=== PATIENT | female | born 1965 | race American Indian/Alaskan Native ===

== ENCOUNTER 2017-06-11 09:50 | Emergency (ER) | payer SELFPAY ==
[2017-06-11 10:05] VITALS: BP 95/65
[2017-06-11] MEDS ORDERED: Ketorolac 30 MG/ML SDV ONE (10:47)
[2017-06-11] MEDS ORDERED: Ketorolac 30 MG/ML SDV IM ONE (10:48)
[2017-06-11] MEDS ORDERED: Methocarbamol 500 MG Tab PO ONE (11:04)
--- NOTE | 2017-06-11 11:06 | EDM.PDOC ---
ED HPI GENERAL MEDICAL PROBLEM - General Chief Complaint: Back Pain or Injury Stated Complaint: back pain Time Seen by Provider: 06/11/17 10:30 Source of Information: Reports: Patient History Limitations: Reports: No Limitations - History of Present Illness INITIAL COMMENTS - FREE TEXT/NARRATIVE: 52-year-old female presents emergency room with acute on chronic low back pain complaints. Patient has had a long history of difficulties relating to her low back. She states that she gets some pain radiating down into her left Leg with tingling. The durations of her symptoms have been at least 5 years. She states the pain is sharp and shooting. She denies any saddle paresthesias or bowel or bladder incontinence. Patient denies any significant change in her pain or symptoms including radicular complaints for her back pain. She's had a prior MRI in 2014 of her lumbar spine and report is reviewed today. Her impression showed a questionable tiny disc protrusion at L5-S1 in the right subarticular region. There is no associated spinal canal stenosis or nerve root impingement. There is also a T12 and L1 small central disc protrusion without spinal canal stenosis or nerve root impingement. MRI was otherwise unremarkable. She has a current smoker but has cut down to 5 cigarettes a day. She is prior pack and a half a day smoker. 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 She states that she does not have insurance and therefore she cannot afford surgery. She reports she does not have a primary care provider currently at this time and has relocated from the [facility] to [place]. She states that she is well defined and your primary care provider" for management of her pain. She's had at least 2 visits and the most recent past to the ER presenting with back pain. These were in [place] at [facility]. Her last visit was in May 25, 2017. She was given Decadron, Valium, Narco and portal in the ED department. She was discharged with Robaxin and was encouraged to follow-up with her primary care provider. She has tried physical therapy in the past but reports that this has not been helpful. She has not been through any recent therapy. 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 She's been treated with Soma and gabapentin for her fibromyalgia. She reports she no longer sees Dr. Anderson. 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) Lower Back Pain Score (Numeric/FACES): 9 - Related Data Allergies Allergy/AdvReac Type Severity Reaction Status Date / Time latex Allergy Unknown Anaphylactic Uncoded 06/11/17 10:05 Shock seafood Allergy Unknown Airway Uncoded 06/11/17 10:05 Tightness Home Meds: Home Meds Gabapentin [Neurontin] 300 mg PO TID 06/11/17 [History] Past Medical History - Past Health History Medical/Surgical History: Denies Medical/Surgical History Gastrointestinal History: Reports: Hemorrhoids Genitourinary History: Reports: None 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 Musculoskeletal History: Reports: Back Pain, Chronic, Fracture, Fibromyalgia, Neck Pain, Chronic Dermatologic History: Reports: Eczema - Infectious Disease History Infectious Disease History: Reports: Chicken Pox, Measles - Past Surgical History Head Surgeries/Procedures: Reports: None HEENT Surgical History: Reports: Adenoidectomy, Tonsillectomy GI Surgical History: Reports: Appendectomy Female Surgical History: Reports: Tubal Ligation Musculoskeletal Surgical History: Reports: None Dermatological Surgical History: Reports: None Social & Family History - Family History Family Medical History: Noncontributory - Tobacco Use Smoking Status *Q: Current Every Day Smoker Years of Tobacco use: 40 Packs/Tins Daily: 0.2 Used Tobacco, but Quit: No Month Tobacco Last Used: nov. Second Hand Smoke Exposure: No - Caffeine Use Caffeine Use: Reports: Coffee, Soda, Tea - Alcohol Use Days Per Week of Alcohol Use: 0 - Recreational Drug Use Recreational Drug Use: No - Living Situation & Occupation Living situation: Reports: with Family Occupation: Employed ED ROS GENERAL - Review of Systems Review Of Systems: See Below Constitutional: Denies: Fever, Chills HEENT: Denies: Vertigo Respiratory: Denies: Shortness of Breath Cardiovascular: Denies: Chest Pain, Blood Pressure Problem Endocrine: Denies: High Glucose GI/Abdominal: Denies: Abdominal Pain : Denies: Dysuria, Flank Pain Musculoskeletal: Reports: Back Pain (chronic) Skin: Denies: Diaphoresis Neurological: Reports: Numbness, Tingling. Denies: Change in Speech, Gait Disturbance Psychiatric: Reports: No Symptoms Hematologic/Lymphatic: Reports: No Symptoms Immunologic: Reports: Anaphylaxis ED EXAM,LOWER BACK PAIN/INJURY - Physical Exam Exam: See Below Exam Limited By: No Limitations General Appearance: Alert, Mild Distress Eye Exam: Bilateral Eye: EOMI, PERRL Head: Atraumatic, Normocephalic Neck: Normal Inspection, Supple Respiratory/Chest: No Respiratory Distress, Lungs Clear Cardiovascular: Regular Rate, Rhythm, No Murmur Back Exam: Normal Inspection, Muscle Spasm, Paraspinal Tenderness, Other (back exam reveals no prior history trauma or surgery. She has a paraspinal tenderness near the lumbosacral junction extending proximally up the lumbar spine. She has no specific midline bony tenderness. She does complain of increased pain discomfort with any gentle range of motion. Lower extremity exam shows motor strength are 5 out of 5 throughout with hip flexion extension ankle dorsal plantar flexion and great toe extension bilaterally she has supple unrestricted range of motion with passive range of motion of her hips knees and ankles. Straight leg raise is negative and patient is able to actively straight leg with minimal difficulty. She has no swelling or peripheral edema. Her pulses are 2+ her skin dry and intact. Deep tendon reflexes are 1+ at the knees and ankles and symmetric toes are downgoing with Babinski and clonus is absent bilaterally.). No: Vertebral Tenderness Extremities: Normal Inspection, Normal Range of Motion, No Pedal Edema, Normal Capillary Refill Neurological: Alert, Normal Mood/Affect, Normal Dorsiflexion, Normal Plantar Flexion, No Motor/Sensory Deficits, Oriented x 3, Other (clonus is absent). No : Babinski, Straight Leg Raise (L), Straight Leg Raise (R), Saddle Anesthesia DTR - Lower Extremities: 1+: Knee (R), Knee (L), Ankle (R), Ankle (L) Psychiatric: Normal Affect, Depressed Mood Skin Exam: Warm, Dry, Intact, Normal Color, No Rash Lymphatic: No Adenopathy Course - Vital Signs Last Recorded V/S: Last Vital Signs Temp 98.5 F 06/11/17 09:53 Pulse 82 06/11/17 09:53 Resp 16 06/11/17 09:53 BP 95/65 06/11/17 09:53 Pulse Ox 97 06/11/17 09:53 - Orders/Labs/Meds Orders: Active Orders 24 hr Category Date Time Status Lumbar Spine 2 or 3V [CR] Stat Exams 06/11/17 10:47 Ordered Meds: Medications Discontinued Medications Generic Name Dose Route Start Last Admin Trade Name Noy PRN Reason Stop Dose Admin Ketorolac Tromethamine 30 mg 06/11/17 10:48 Toradol IM 06/11/17 10:49 .STK-MED ONE Ketorolac Tromethamine Confirm 06/11/17 10:47 06/11/17 10:53 Toradol Administered 06/11/17 10:48 30 mg Dose Administration 30 mg .ROUTE .STK-MED ONE Meperidine HCl Confirm 06/11/17 11:45 06/11/17 11:51 Demerol Administered 06/11/17 11:46 Not Given Dose 50 mg .ROUTE .STK-MED ONE Meperidine HCl 50 mg 06/11/17 11:51 Demerol IM 06/11/17 11:52 ONETIME ONE Methocarbamol 1,000 mg 06/11/17 11:04 06/11/17 11:18 Robaxin PO 06/11/17 11:05 1,000 mg ONETIME ONE Administration - Radiology Interpretation Free Text/Narrative:: X-rays lumbar spine 3 views Findings: Normal alignment. No acute fracture, subluxation or spondylolysis. Stable mild degenerative disc disease at L1-2 and L3-4. Remaining lumbar disc are unremarkable. Mild degenerative changes of the sacroiliac joints. Impression No acute process - Re-Assessments/Exams Free Text/Narrative Re-Assessment/Exam: 06/11/17 11:46 Patient was given IM Toradol 30 mg and 1000 mg of Robaxin by mouth. Patient reports little to no significant change with regards to her pain currently. Patient was given 50 IM Demerol. We'll reassess her pain. Free Text/Narrative Re-Assessment/Exam: 06/11/17 12:06 Patient had some relief of her pain and discomfort with the IM Demerol. Departure - Departure Time of Disposition: 12:10 Disposition: Home, Self-Care 01 Condition: Good Clinical Impression: Chronic lower back pain - Discharge Information Instructions: Back Pain, Adult, [id number], Pain Medicine Instructions, Easy- to-Read, Chronic Back Pain Referrals: PCP,None [Primary Care Provider] - Forms: ED Department Discharge Care Plan Goals: 1. Toradol 10 mg 1 by mouth 3 times a day #15 dispensed for acute back pain. 2. Flexeril 10 mg 1 by mouth 3 times a day #30 dispensed for muscle spasms. 3. Rest over the weekend avoid vigorous activities or lifting. 4. Ice and heat packs for analgesic and comfort as needed. 5. Recommend the patient follow-up with her primary care provider. As she is new to this area I have recommended follow-up with Dr. Jackie Ribeiro for her primary care needs. 6. We will also have patient meet with HR resources for obtaining and providing information on healthcare insurance. - My Orders Last 24 Hours: My Active Orders 06/11/17 10:47 Lumbar Spine 2 or 3V [CR] Stat - Assessment/Plan Last 24 Hours: My Active Orders 06/11/17 10:47 Lumbar Spine 2 or 3V [CR] Stat Assessment:: 1. Chronic low back pain 2. Fibromyalgia Plan: 1. Toradol 10 mg 1 by mouth 3 times a day #15 dispensed for acute back pain. 2. Flexeril 10 mg 1 by mouth 3 times a day #30 dispensed for muscle spasms. 3. Rest over the weekend avoid vigorous activities or lifting. 4. Ice and heat packs for analgesic and comfort as needed. 5. Recommend the patient follow-up with her primary care provider. As she is new to this area I have recommended follow-up with Dr. Jackie Ribeiro for her primary care needs. 6. We will also have patient meet with HR resources for obtaining and providing information on healthcare insurance. 7. Long discussion with the patient regarding her MRI from 2014 upon its review. There does not appear to be anything surgically indicated from her MRI from 2015. Patient reports her symptoms really have not changed over the last couple years since her MRI. I have recommended that she try physical therapy again as well as the importance of having a primary care provider manage her symptoms and pain. She has had a prior pain contract with Dr. Anderson and this may be one of the routes that she would need to reinitiate. She understands this. She seems to be encouraged and relieved that there is nothing surgically reviewed from her MRI. If her symptoms should change or progressively worsen with a new onset of radicular or sciatic pain then a new MRI would be indicated. Patient was discharged to home with her spouse.
[2017-06-11] MEDS ORDERED: Meperidine PF 50 MG/ML Syringe ONE (11:45)
[2017-06-11] MEDS ORDERED: Meperidine PF 50 MG/ML Syringe IM ONE (11:51)
== END 2017-06-11 12:05 | disposition home or self-care (01) ==
LOC: KA.ED 09:50
DX: G89.29 Other chronic pain (principal); M54.5 Low back pain; F17.210 Nicotine dependence, cigarettes, uncomplicated; Z91.040 Latex allergy status; Z91.013 Allergy to seafood; Z90.49 Acquired absence of other specified parts of digestive tract; Z90.89 Acquired absence of other organs; Z98.51 Tubal ligation status
CPT/HCPCS: 72100; 96372; 99283; A9270; J1885; J2175

== ENCOUNTER 2019-03-06 15:58 | Emergency (ER) | payer SELFPAY ==
[2019-03-06 16:16] VITALS: BP 120/83
--- NOTE | 2019-03-06 17:01 | EDM.PDOC ---
ED HPI GENERAL MEDICAL PROBLEM - General Chief Complaint: Lower Extremity Injury/Pain Stated Complaint: right foot pain Time Seen by Provider: 03/06/19 16:55 Source of Information: Reports: Patient History Limitations: Reports: No Limitations - History of Present Illness INITIAL COMMENTS - FREE TEXT/NARRATIVE: She is a 53-year-old female who presents to the emergency department this afternoon with a complaint of right foot pain. Patient states that she was a local store and she accidentally twisted her right foot. Patient denies any other injury, chest pain, shortness of breath, syncope, or knee pain. Onset: Today, Sudden Duration: Minutes: Location: Reports: Lower Extremity, Right Quality: Reports: Ache Severity: Moderate Improves with: Reports: None Worsens with: Reports: Movement Context: Reports: Trauma Associated Symptoms: Reports: No Other Symptoms Right Foot Pain Score (Numeric/FACES): 10 - Related Data Allergies Allergy/AdvReac Type Severity Reaction Status Date / Time latex Allergy Unknown Anaphylactic Uncoded 03/06/19 16:15 Shock seafood Allergy Unknown Airway Uncoded 03/06/19 16:15 Tightness Home Meds: Home Meds Gabapentin [Neurontin] 300 mg PO TID 06/11/17 [History] Cyclobenzaprine HCl 10 mg PO TID PRN 03/06/19 [History] Past Medical History - Past Health History Medical/Surgical History: Denies Medical/Surgical History Gastrointestinal History: Reports: Hemorrhoids Genitourinary History: Reports: None 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 Musculoskeletal History: Reports: Back Pain, Chronic, Fracture, Fibromyalgia, Neck Pain, Chronic Dermatologic History: Reports: Eczema - Infectious Disease History Infectious Disease History: Reports: Chicken Pox, Measles - Past Surgical History Head Surgeries/Procedures: Reports: None HEENT Surgical History: Reports: Adenoidectomy, Tonsillectomy GI Surgical History: Reports: Appendectomy Female Surgical History: Reports: Tubal Ligation Musculoskeletal Surgical History: Reports: None Dermatological Surgical History: Reports: None Social & Family History - Family History Family Medical History: Noncontributory - Tobacco Use Smoking Status *Q: Former Smoker Used Tobacco, but Quit: Yes Month/Year Tobacco Last Used: quit 2 months ago Second Hand Smoke Exposure: No - Caffeine Use Caffeine Use: Reports: Coffee, Soda, Tea - Recreational Drug Use Recreational Drug Use: No - Living Situation & Occupation Living situation: Reports: with Family Occupation: Employed Review of Systems - Review of Systems Review Of Systems: ROS reveals no pertinent complaints other than HPI. Constitutional: Reports: No Symptoms Eyes: Reports: No Symptoms Ears: Reports: No Symptoms Nose: Reports: No Symptoms Mouth/Throat: Reports: No Symptoms Respiratory: Reports: No Symptoms Cardiovascular: Reports: No Symptoms GI/Abdominal: Reports: No Symptoms Genitourinary: Reports: No Symptoms Musculoskeletal: Reports: Foot Pain (Right) Skin: Reports: No Symptoms Neurological: Reports: No Symptoms Psychiatric: Reports: No Symptoms ED EXAM, GENERAL - Physical Exam Exam: See Below Exam Limited By: No Limitations General Appearance: Alert, WD/WN, No Apparent Distress Throat/Mouth: Normal Inspection, Normal Oropharynx, No Airway Compromise Head: Atraumatic, Normocephalic Neck: Normal Inspection, Supple, Non-Tender Respiratory/Chest: No Respiratory Distress Back Exam: Normal Inspection Extremities: Leg Pain (Right foot, lateral aspect. Tenderness to palpation. No erythema, no edema, no deformity, no ecchymosis, no ankle range of motion tenderness or ligamentous laxity, no proximal tib-fib tenderness to palpation.) Neurological: Alert, Oriented, Normal Cognition Psychiatric: Normal Affect, Normal Mood Skin Exam: Warm, Dry, Intact, Normal Color, No Rash Course - Vital Signs Last Recorded V/S: Last Vital Signs Temp 97.7 F 03/06/19 16:11 Pulse 98 03/06/19 16:11 Resp 20 03/06/19 16:11 BP 120/83 03/06/19 16:11 Pulse Ox 98 03/06/19 16:11 - Orders/Labs/Meds Orders: Active Orders 24 hr Category Date Time Status Ankle Min 3V Rt [CR] Stat Exams 03/06/19 16:21 Taken Foot Comp Min 3V Rt [CR] Stat Exams 03/06/19 16:21 Taken - Re-Assessments/Exams Free Text/Narrative Re-Assessment/Exam: 03/06/19 17:04 Patient afebrile, vital signs stable, ice applied. Patient will treat with rice and follow-up with PCP. Departure - Departure Time of Disposition: 17:05 Disposition: Home, Self-Care 01 Condition: Good Clinical Impression: Right foot sprain Qualifiers: Encounter type: initial encounter Qualified Code(s): S93.601A - Unspecified sprain of right foot, initial encounter - Discharge Information Instructions: Foot Sprain, RICE Therapy for Routine Care of Injuries, Easy-to- Read Referrals: Jackie Juárez MD [Primary Care Provider] - Additional Instructions: Follow-up with PCP in next 2-3 days. Limit ambulation for 2-3 days. - My Orders Last 24 Hours: My Active Orders 03/06/19 16:21 Ankle Min 3V Rt [CR] Stat Foot Comp Min 3V Rt [CR] Stat - Assessment/Plan Last 24 Hours: My Active Orders 03/06/19 16:21 Ankle Min 3V Rt [CR] Stat Foot Comp Min 3V Rt [CR] Stat Assessment:: Right foot sprain Plan: Follow-up with PCP
--- NOTE | 2019-03-06 17:04 | CR ---
[id number] RAD/RAD Foot Right 3V Min EXAM: 3 VIEWS RIGHT FOOT. INDICATION: PAIN. COMPARISON: None. DISCUSSION: No fracture, dislocation or other acute osseous abnormality. Mild degenerative changes seen throughout the right foot post pronounced within the midfoot and interphalangeal joints. IMPRESSION: 1. No acute osseous abnormalities. Lacho Umana DO 03/06/19 [id number] Thank you for allowing us to participate in the care of your patient.
--- NOTE | 2019-03-06 17:04 | CR ---
[id number] RAD/RAD Ankle Right 3V Min EXAM: 3 VIEWS RIGHT ANKLE. INDICATION: PAIN. COMPARISON: None. DISCUSSION: No fracture, dislocation or other acute osseous abnormality. IMPRESSION: 1. No acute osseous abnormalities. Lacho Umana DO 03/06/19 [id number] Thank you for allowing us to participate in the care of your patient.
== END 2019-03-06 17:15 | disposition home or self-care (01) ==
LOC: KA.ED 15:58
DX: S93.601A Unspecified sprain of right foot, initial encounter (principal); Z91.040 Latex allergy status; Z91.013 Allergy to seafood; Z79.899 Other long term (current) drug therapy; Z87.891 Personal history of nicotine dependence; X50.1XXA Overexertion from prolonged static or awkward postures, initial encounter
CPT/HCPCS: 73610-RT; 73630-RT; 99283-25

== ENCOUNTER 2021-08-12 09:49 | Emergency (ER) | payer SELFPAY ==
[2021-08-12 10:04] VITALS: BP 116/73; PULSE 114
--- NOTE | 2021-08-12 10:46 | EDM.PDOC ---
ED HPI GENERAL MEDICAL PROBLEM - General Chief Complaint: General Stated Complaint: COVID SYMPTOMS Time Seen by Provider: 08/12/21 10:33 Source of Information: Reports: Patient History Limitations: Reports: No Limitations - History of Present Illness INITIAL COMMENTS - FREE TEXT/NARRATIVE: Patient presents with dyspnea, cough, decreased appetite/taste, and body aches. She also had diarrhea for one day and has vomited a couple times. Had a fever up to 102 but gone now. Symptoms started 7 days ago. She was exposed to covid from coworker. She has one day left of a Z-pack from Dr. Mitchell; says it helped some. 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: Other Medication(s) - Related Data Allergies Allergy/AdvReac Type Severity Reaction Status Date / Time latex Allergy Unknown Anaphylactic Uncoded 08/12/21 10:04 Shock seafood Allergy Unknown Airway Uncoded 08/12/21 10:04 Tightness Home Meds: Home Meds Cyclobenzaprine HCl 10 mg PO TID PRN 03/06/19 [History] Azithromycin [Zithromax] 250 mg PO DAILY 08/12/21 [History] Codeine/guaiFENesin [guaiFENesin-Codeine Syrup] 5 ml PO Q6H 08/12/21 [History] carisoprodoL [Carisoprodol] 350 mg PO TID 08/12/21 [History] Past Medical History - Past Health History Medical/Surgical History: Denies Medical/Surgical History Gastrointestinal History: Reports: Hemorrhoids Genitourinary History: Reports: None 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 Musculoskeletal History: Reports: Back Pain, Chronic, Fracture, Fibromyalgia, Neck Pain, Chronic Dermatologic History: Reports: Eczema - Infectious Disease History Infectious Disease History: Reports: Chicken Pox, Measles - Past Surgical History Head Surgeries/Procedures: Reports: None HEENT Surgical History: Reports: Adenoidectomy, Tonsillectomy GI Surgical History: Reports: Appendectomy Female Surgical History: Reports: Tubal Ligation Musculoskeletal Surgical History: Reports: None Dermatological Surgical History: Reports: None Social & Family History - Family History Family Medical History: No Pertinent Family History - Tobacco Use Tobacco Use Status *Q: Current Every Day Tobacco User Years of Tobacco use: 36 Packs/Tins Daily: 0.5 - Caffeine Use Caffeine Use: Reports: Coffee, Soda, Tea - Recreational Drug Use Recreational Drug Use: No - Living Situation & Occupation Living situation: Reports: with Family Occupation: Employed ED ROS GENERAL - Review of Systems Review Of Systems: See Below Constitutional: Reports: Malaise, Weakness, Fatigue. Denies: Fever HEENT: Denies: Ear Pain, Throat Pain, Vision Change Respiratory: Reports: Shortness of Breath, Cough Cardiovascular: Denies: Chest Pain, Lightheadedness, Syncope GI/Abdominal: Denies: Abdominal Pain, Constipation, Diarrhea, Vomiting : Denies: Dysuria, Flank Pain Musculoskeletal: Reports: Other (general body aches) Skin: Denies: Cyanosis, Jaundice, Mottled, Pallor, Diaphoresis Neurological: Denies: Confusion, Dizziness, Headache, Seizure, Syncope, Trouble Speaking, Difficulty Walking Psychiatric: Denies: Agitation, Anxiety, Confusion ED EXAM, GENERAL - Physical Exam Exam: See Below Exam Limited By: No Limitations General Appearance: Alert, WD/WN, No Apparent Distress Eye Exam: Bilateral Eye: EOMI, Normal Inspection, PERRL Ears: Normal External Exam, Hearing Grossly Normal Nose: Normal Inspection, No Blood Throat/Mouth: Normal Inspection, Normal Lips, Normal Voice, No Airway Compromise Head: Atraumatic, Normocephalic Neck: Normal Inspection, Full Range of Motion Respiratory/Chest: Decreased Breath Sounds (slightly), Wheezing (faint in left lung), Prolonged Expiration (slightly), Other (denies any chronic lung disease but she does smoke 1/2 ppd). No: Crackles, Rales, Rhonchi, Stridor Cardiovascular: Normal Peripheral Pulses, No Murmur, Tachycardia Peripheral Pulses: 2+: Dorsalis Pedis (L), Dorsalis Pedis (R) GI/Abdominal: Normal Bowel Sounds, Soft, Non-Tender, No Organomegaly, No Distention Back Exam: Normal Inspection, Full Range of Motion, CVA Tenderness (L) (she says flanks have hurt since she got sick but no urine symptoms), CVA Tenderness (R) Extremities: Normal Inspection, Normal Range of Motion, No Pedal Edema, Normal Capillary Refill Neurological: Alert, Oriented, Normal Cognition, No Motor/Sensory Deficits Psychiatric: Normal Affect, Normal Mood Skin Exam: Warm, Dry, Intact, Normal Color, No Rash Course - Vital Signs Last Recorded V/S: Last Vital Signs Temp 97.6 F 08/12/21 09:56 Pulse 114 H 08/12/21 09:56 Resp 14 08/12/21 09:56 BP 116/73 08/12/21 09:56 Pulse Ox 95 08/12/21 09:56 - Orders/Labs/Meds Orders: Active Orders 24 hr Category Date Time Status Isolation [COMM] Routine Oth 08/12/21 11:38 Ordered Labs: Laboratory Tests 08/12/21 08/12/21 08/12/21 Range/Units 10:12 10:35 10:35 WBC 10.53 H (5.00-10.00) 10^3/uL RBC 4.26 (3.80-5.50) 10^6/uL Hgb 13.7 (12.0-16.0) g/dL Hct 40.2 (37.0-47.0) % MCV 94.4 H (82.0-92.0) fL MCH 32.2 H (27.0-31.0) pg MCHC 34.1 (32.0-36.0) g/dL RDW 12.7 (11.5-14.5) % Plt Count 206 (150-400) 10^3/uL MPV 9.2 (7.4-10.4) fL Immature Gran % (Auto) 0.1 (0.0-5.0) % Neut % (Auto) 78.5 H (50.0-70.0) % Lymph % (Auto) 13.2 L (20.0-40.0) % [place] % (Auto) 8.1 H (2.0-8.0) % Eos % (Auto) 0.0 L (1.0-3.0) % Baso % (Auto) 0.1 (0.0-1.0) % Neut # (Auto) 8.27 H (2.50-7.00) 10^3/uL Lymph # (Auto) 1.39 (1.00-4.00) 10^3/uL [place] # (Auto) 0.85 H (0.10-0.80) 10^3/uL Eos # (Auto) 0.00 L (0.10-0.30) 10^3/uL Baso # (Auto) 0.01 (0.00-0.10) 10^3/uL Immature Gran # (Auto) 0.01 (0.00-0.50) 10^3/uL Sodium 139 (136-145) mmol/L Potassium 4.3 (3.5-5.1) mmol/L Chloride 103 (98-107) mmol/L Carbon Dioxide 23.9 (21.0-32.0) mmol/L Anion Gap 16.4 H (5-15) mmol/L BUN 5 L (7-18) mg/dL Creatinine 0.44 L (0.51-1.17) mg/dL Est Cr Clr Drug Dosing 129.73 mL/min Estimated GFR (MDRD) > 60 mL/min Glucose 105 (70-140) mg/dL Lactic Acid (0.4-2.0) mmol/L Calcium 8.3 L (8.7-10.3) mg/dL Total Bilirubin 1.2 H (0.2-1.0) mg/dL AST 41 H (15-37) U/L ALT 26 (14-63) U/L Alkaline Phosphatase 112 (46-116) U/L Total Protein 6.7 (6.4-8.2) g/dL Albumin 2.88 L (3.40-5.00) g/dL Specimen Type Urine Color (YELLOW) Urine Appearance (CLEAR) Urine pH (5.0-9.0) Ur Specific [place] (1.005-1.030) Urine Protein (NEGATIVE) mg/dL Urine Glucose (UA) (NEGATIVE) mg/dL Urine Ketones (NEGATIVE) mg/dL Urine Occult Blood (NEGATIVE) Urine Nitrite (NEGATIVE) Urine Bilirubin (NEGATIVE) Urine Urobilinogen (0.2-1.0) E.U./dL Ur Leukocyte Esterase (NEGATIVE) Urine RBC (0-5) /HPF Urine WBC (0-5) /HPF Ur Epithelial Cells /LPF Urine Bacteria (NONE TO FEW) /HPF SARS CoV-2 RNA Rapid MARCK Negative (NEGATIVE) 08/12/21 08/12/21 Range/Units 10:35 12:03 WBC (5.00-10.00) 10^3/uL RBC (3.80-5.50) 10^6/uL Hgb (12.0-16.0) g/dL Hct (37.0-47.0) % MCV (82.0-92.0) fL MCH (27.0-31.0) pg MCHC (32.0-36.0) g/dL RDW (11.5-14.5) % Plt Count (150-400) 10^3/uL MPV (7.4-10.4) fL Immature Gran % (Auto) (0.0-5.0) % Neut % (Auto) (50.0-70.0) % Lymph % (Auto) (20.0-40.0) % [place] % (Auto) (2.0-8.0) % Eos % (Auto) (1.0-3.0) % Baso % (Auto) (0.0-1.0) % Neut # (Auto) (2.50-7.00) 10^3/uL Lymph # (Auto) (1.00-4.00) 10^3/uL [place] # (Auto) (0.10-0.80) 10^3/uL Eos # (Auto) (0.10-0.30) 10^3/uL Baso # (Auto) (0.00-0.10) 10^3/uL Immature Gran # (Auto) (0.00-0.50) 10^3/uL Sodium (136-145) mmol/L Potassium (3.5-5.1) mmol/L Chloride (98-107) mmol/L Carbon Dioxide (21.0-32.0) mmol/L Anion Gap (5-15) mmol/L BUN (7-18) mg/dL Creatinine (0.51-1.17) mg/dL Est Cr Clr Drug Dosing mL/min Estimated GFR (MDRD) mL/min Glucose (70-140) mg/dL Lactic Acid 1.6 (0.4-2.0) mmol/L Calcium (8.7-10.3) mg/dL Total Bilirubin (0.2-1.0) mg/dL AST (15-37) U/L ALT (14-63) U/L Alkaline Phosphatase (46-116) U/L Total Protein (6.4-8.2) g/dL Albumin (3.40-5.00) g/dL Specimen Type [place]rin[place]ad Urine Color Yellow (YELLOW) Urine Appearance Clear (CLEAR) Urine pH 7.0 (5.0-9.0) Ur Specific [place] 1.015 (1.005-1.030) Urine Protein Negative (NEGATIVE) mg/dL Urine Glucose (UA) 100 H (NEGATIVE) mg/dL Urine Ketones Trace H (NEGATIVE) mg/dL Urine Occult Blood Negative (NEGATIVE) Urine Nitrite Negative (NEGATIVE) Urine Bilirubin Negative (NEGATIVE) Urine Urobilinogen >=8.0 H (0.2-1.0) E.U./dL Ur Leukocyte Esterase Negative (NEGATIVE) Urine RBC Not seen (0-5) /HPF Urine WBC Not seen (0-5) /HPF Ur Epithelial Cells Moderate H /LPF Urine Bacteria Few (NONE TO FEW) /HPF SARS CoV-2 RNA Rapid MARCK (NEGATIVE) Meds: Medications Discontinued Medications Generic Name Dose Route Start Last Admin Trade Name Freq PRN Reason Stop Dose Admin Sodium Chloride 1,000 mls @ 999 mls/hr 08/12/21 10:51 Normal Saline IV 08/12/21 11:51 .BOLUS ONE Ketorolac Tromethamine 30 mg 08/12/21 11:37 08/12/21 12:05 Ketorolac 30 Mg/Ml Sdv IVPUSH 08/12/21 11:38 30 mg ONETIME ONE Administration - Re-Assessments/Exams Free Text/Narrative Re-Assessment/Exam: 08/12/21 10:56 CXR shows small left pleural effusion and atelectasis; right lung is clear. 08/12/21 11:38 Covid test is negative. Patient asks what this could be; will check for influenza. She is also having pain in muscles around left scapula, tender to palpation. Wants something for it. Will give Toradol. Departure - Departure Time of Disposition: 13:14 Disposition: Home, Self-Care 01 Condition: Good Clinical Impression: Acute bronchitis Qualifiers: Bronchitis organism: unspecified organism Qualified Code(s): J20.9 - Acute bronchitis, unspecified - Discharge Information Referrals: Jackie Juárez MD [Primary Care Provider] - Forms: ED Department Discharge Additional Instructions: Drink 8 cups of water daily. This will help your cough and other symptoms. Finish the course of Zithromax you have started. You can try Mucinex or Robitussin for the cough if you want. Follow up with your PCP if not improving in 2-3 days. If worsening, recheck in clinic or ER as needed. Sepsis Event Note (ED) - Evaluation Sepsis Screening Result: No Definite Risk - Focused Exam Vital Signs: Vital Signs Temp Pulse Resp BP Pulse Ox 08/12/21 09:56 97.6 F 114 H 14 116/73 95 - My Orders Last 24 Hours: My Active Orders 08/12/21 11:38 Isolation [COMM] Routine - Assessment/Plan Last 24 Hours: My Active Orders 08/12/21 11:38 Isolation [COMM] Routine
--- NOTE | 2021-08-12 10:47 | CR ---
[id number] RAD/RAD Chest PA or AP 1V EXAM: RAD Chest PA or AP 1V INDICATION: COUGH, SOB COMPARISON: None. DISCUSSION/IMPRESSION: Cardiomediastinal silhouette is normal in size and contour. Small left pleural effusion and atelectasis. Right lung is clear. No pleural effusion or pneumothorax. Jostin Trujillo MD 08/12/21 1046 Thank you for allowing us to participate in the care of your patient.
[2021-08-12] MEDS ORDERED: Sodium Chloride 0.9% 1,000 ML IV ONE (10:51)
[2021-08-12 11:01] LABS: ANION GAP 16.4 mmol/L (5-15); CHLORIDE,CL 103 mmol/L (98-107); SODIUM,NA 139 mmol/L (136-145)
[2021-08-12] MEDS ORDERED: Ketorolac 30 MG/ML SDV IVPUSH ONE (11:37)
== END 2021-08-12 13:50 | disposition home or self-care (01) ==
LOC: KA.ED 09:49
DX: J20.9 Acute bronchitis, unspecified (principal); Z91.040 Latex allergy status; Z91.013 Allergy to seafood; Z72.0 Tobacco use; Z20.822 Contact with and (suspected) exposure to COVID-19
CPT/HCPCS: 36415; 71045; 80053; 81001; 83605; 85025; 87635; 87804; 96374; 99285; J1885; 99284; U0002

== ENCOUNTER 2021-09-08 14:20 | Inpatient (IN) | payer SELFPAY ==
[2021-09-08] MEDS ORDERED: Ondansetron 4 MG Tab.DIS PO PRN (16:07)
[2021-09-08] MEDS ORDERED: Sodium Chloride 0.9% 10 ML Syringe FLUSH PRN (16:07)
--- NOTE | 2021-09-08 16:16 | PCM.HP.2 ---
H&P History of Present Illness - General Date of Service: 09/08/21 Admit Problem/Dx: Admission Diagnosis/Problem Admission Diagnosis/Problem Dehydration Source of Information: Patient, Old Records, Significant Other History Limitations: Reports: No Limitations Back Pain Score (Numeric/FACES): 5 - Related Data Allergies/Adverse Reactions: Allergies Allergy/AdvReac Type Severity Reaction Status Date / Time latex Allergy Unknown Anaphylactic Uncoded 09/08/21 14:40 Shock seafood Allergy Unknown Airway Uncoded 09/08/21 14:40 Tightness Home Medications: Home Meds Cyclobenzaprine HCl 10 mg PO TID PRN 03/06/19 [History] carisoprodoL [Carisoprodol] 350 mg PO TID 08/12/21 [History] Past Medical History - Past Health History Medical/Surgical History: Denies Medical/Surgical History Gastrointestinal History: Reports: Hemorrhoids Genitourinary History: Reports: None 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 Musculoskeletal History: Reports: Back Pain, Chronic, Fracture, Fibromyalgia, Neck Pain, Chronic Dermatologic History: Reports: Eczema - Infectious Disease History Infectious Disease History: Reports: Chicken Pox, Measles - Past Surgical History Head Surgeries/Procedures: Reports: None HEENT Surgical History: Reports: Adenoidectomy, Tonsillectomy GI Surgical History: Reports: Appendectomy Female Surgical History: Reports: Tubal Ligation Musculoskeletal Surgical History: Reports: None, Other (See Below) Other Musculoskeletal Surgeries/Procedures:: Left hand, elbow and wrist, Dermatological Surgical History: Reports: None Social & Family History - Family History Family Medical History: No Pertinent Family History - Tobacco Use Tobacco Use Status *Q: Former Tobacco User Years of Tobacco use: 17 Packs/Tins Daily: 0.5 Used Tobacco, but Quit: Yes Month/Year Tobacco Last Used: 08/2021 - Caffeine Use Caffeine Use: Reports: None - Recreational Drug Use Recreational Drug Use: No - Living Situation & Occupation Living situation: Reports: with Family Occupation: Employed H&P Review of Systems - Review of Systems: Review Of Systems: See Below General: Reports: Malaise, Weakness, Fatigue, Decreased Appetite, Weight Loss. Denies: Night Sweats, Diaphoresis, Weight Gain HEENT: Reports: No Symptoms Pulmonary: Reports: Shortness of Breath. Denies: Cough, Sputum Cardiovascular: Reports: Lightheadedness Gastrointestinal: Reports: Abdominal Pain, Constipation (NO BM 7days ) Genitourinary: Reports: No Symptoms Musculoskeletal: Reports: Muscle Stiffness Psychiatric: Reports: Mood Lability. Denies: Confusion Neurological: Reports: Pre-Existing Deficit, Difficulty Walking, Weakness, Gait Disturbance. Denies: Paresthesia, Tremors, Change in Speech Hematologic/Lymphatic: Reports: Swollen Glands (cervical lymph nodes bilatera. ) Exam - Exam Exam: See Below - Vital Signs Vital Signs: Last Vital Signs Temp 97.3 F 09/08/21 14:37 Pulse 118 H 09/08/21 14:37 Resp 20 09/08/21 14:37 BP 116/72 09/08/21 14:37 Pulse Ox 96 09/08/21 14:37 Weight: 120 lb 12.8 oz - Exam Quality Assessment: No: Supplemental Oxygen General: Alert, Oriented. No: Mild Distress HEENT: Hearing Intact, Pupils Equal, Pupils Reactive, TMs Clear. No: Mucosa Moist & [place] Lungs: Clear to Auscultation, Normal Respiratory Effort. No: Crackles, Rales Cardiovascular: Regular Rate, Regular Rhythm, Tachycardia GI/Abdominal Exam: Tender (generalized tenderness. ). No: Normal Bowel Sounds, Distended (Female) Exam: Deferred Back Exam: No: CVA Tenderness (L), CVA Tenderness (R) Extremities: No Pedal Edema. No: Pedal Edema Peripheral Pulses: 2+: Radial (L), Radial (R) Skin: Dry Neurological: Normal Speech, Normal Tone, Sensation Intact Neuro Extensive - Mental Status: Alert, Oriented x3, Normal Mood/Affect, Memory Intact Neuro Extensive - Motor, Sensory, Reflexes: CN II-XII Intact Psychiatric: Alert, Labile Mood - Patient Data Result Diagrams: 09/10/21 08:40 09/10/21 08:40 Sepsis Event Note - Focused Exam Vital Signs: Vital Signs Temp Pulse Resp BP Pulse Ox 09/08/21 14:37 97.3 F 118 H 20 116/72 96 Problem List Initiated/Reviewed/Updated: Yes Orders Last 24hrs: Active Orders 24 hr Category Date Time Status Patient Status [ADT] Urgent ADT 09/08/21 16:07 Ordered Height and Weight [RC] UPON Care 09/08/21 16:07 Ordered Intake and Output [RC] QSHIFT Care 09/08/21 16:08 Ordered May Shower [RC] ASDIRECTED Care 09/08/21 16:07 Ordered Oxygen Therapy [RC] PRN Care 09/08/21 16:07 Ordered Peripheral IV Care [RC] . DIRECTED Care 09/08/21 16:10 Ordered Up With Assistance [RC] ASDIRECTED Care 09/08/21 16:07 Ordered Up to Chair [RC] ASDIRECTED Care 09/08/21 16:07 Ordered VTE/DVT Education [RC] PER UNIT ROUTINE Care 09/08/21 16:07 Ordered Vital Signs [RC] Q8H Care 09/08/21 16:07 Ordered Mechanical Soft Diet [DIET] Diet 09/08/21 Dinner Active NPO After Midnight [Nothing per Oral After Midnight Diet 09/08/21 Dinner Ordered Diet] [DIET] Chest 2V [CR] Routine Exams 09/08/21 16:07 Ordered C-REACTIVE PROTEIN [CHEM] AM Lab 09/09/21 05:11 Ordered CBC W/O DIFF,HEMOGRAM [HEME] Stat Lab 09/08/21 15:43 Ordered COMPREHENSIVE METABOLIC PN,CMP [CHEM] Routine Lab 09/08/21 15:43 Ordered TSH ULTRASENSITIVE [CHEM] Routine Lab 09/08/21 15:43 Ordered Ondansetron [Zofran ODT] Med 09/08/21 16:07 Ordered 4 mg PO Q4H PRN Pantoprazole [ProTONIX IV] Med 09/08/21 16:15 Ordered 40 mg IVPUSH Q12H Sodium Chloride 0.9% [Normal Saline] 1,000 ml Med 09/08/21 16:00 Active IV ASDIRECTED Sodium Chloride 0.9% [Saline Flush] Med 09/08/21 16:07 Ordered 10 ml FLUSH Q8HR PRN Peripheral IV Insertion Adult [OM.PC] Routine Oth 09/08/21 16:07 Ordered Resuscitation Status Routine Resus Stat 09/08/21 16:07 Ordered Medication Orders Sodium Chloride (Normal Saline) 1,000 mls @ 100 mls/hr IV ASDIRECTED JIM Ondansetron HCl (Ondansetron 4 Mg Tab.Dis) 4 mg PO Q4H PRN PRN Reason: nausea, able to take PO Pantoprazole Sodium (Pantoprazole 40 Mg Vial) 40 mg IVPUSH Q12H JIM Sodium Chloride (Sodium Chloride 0.9% 10 Ml Syringe) 10 ml FLUSH Q8HR PRN PRN Reason: keep vein open Assessment/Plan Comment:: History of Present Illness Vicki is a 56-year-old (appears older than stated age) here today due to extremely weakness, lightheadedness, decrease in appetite as she states she has not eaten much in 7 days along with abdominal fullness. Denies any fevers ho wever she does complain of lumps bilateral base of neck. She states she has not been able to eat very much as she feels she gets full rather quickly. Last BM ~ 1week ago. She has had a weight loss of approximately 5 pounds over the past month or two according to records. Patient will be admitted into observation status for further work-up/diagnostics as she does have a heart rate of 120, weakness, lightheadedness, and appears quite dehydrated. Likely will need abdominal/pelvis CT. ____ Primary Hospital Problems --Anemia, 3 g loss past month, concerning for malignancy --Elevated white count, likely leukocytosis, doubtful occult infection --Pleural effusion, Left, moderate, CT in am, suspect exudative given CxR results, likely will need diagnostic thoracentesis --Decrease appetite with 5 Lbs Wt Loss --Esophageal dysphagia, lower --Constipation, profound, holding all treatment modalities until after CT --Dehydration, ivf --Dizziness, Disposition/Overall Plan --Admit to [facility] OBS status for further testing, worrisome sx suggesti ve of Cancer. --CMP, CBC, ESR, CxR --IV Fluids --NPO afternight for scheduled CT - Mortality Measure Prognosis:: Poor
[2021-09-08] MEDS: Sodium Chloride 0.9% 1,000 ML IV SCH (16:52)
[2021-09-08] MEDS: Pantoprazole 40 MG Vial IVPUSH SCH (16:52)
--- NOTE | 2021-09-08 16:54 | CR ---
[id number] RAD/RAD Chest PA And Lateral EXAM: RAD Chest PA And Lateral INDICATION: SHORTNESS OF BREATH. COMPARISON: August 12, 2021. DISCUSSION: Moderate left effusion, increased. Concern for left hilar and possible right paratracheal masses. Consider chest CT with contrast. IMPRESSION: 1. Moderate left effusion, increased. 2. Left hilar fullness and mild prominence of the right paratracheal stripe. Chest CT with contrast is suggested to further evaluate for an underlying mass. Harshil Ríos MD 09/08/21 7230 Thank you for allowing us to participate in the care of your patient.
[2021-09-08] MEDS ORDERED: Cyclobenzaprine 5 MG Tab PO PRN (17:18)
[2021-09-08 17:20] LABS: ANION GAP 14.6 mmol/L (5-15); CHLORIDE,CL 98 mmol/L (98-107); SODIUM,NA 135 mmol/L (136-145)
[2021-09-09] MEDS ORDERED: Acetaminophen 325 MG Tab ONE (00:16)
[2021-09-09] MEDS: Sodium Chloride 0.9% 1,000 ML IV SCH ×2 (01:46→22:26)
[2021-09-09] MEDS: Pantoprazole 40 MG Vial IVPUSH SCH ×2 (05:37→16:18)
[2021-09-09] MEDS ORDERED: Diatrizoate Meglumine/Diatrizoate Sodium 37% 30 ML Bottle PO ONE (09:24)
[2021-09-09] MEDS ORDERED: Iopamidol 755 Mg/ML 75 ML Bottle IVPUSH ONE (09:24)
[2021-09-09] MEDS ORDERED: Sodium Chloride 0.9% 50 ML IV SCH (09:30)
--- NOTE | 2021-09-09 09:31 | PCM.PN ---
- General Info Date of Service: 09/09/21 - Review of Systems General: Reports: Weakness, Fatigue, Malaise HEENT: Denies: Sore Throat Pulmonary: Denies: Cough, Sputum, Hemoptysis, Wheezing Cardiovascular: Denies: Palpitations, Dyspnea on Exertion, PND, Edema, Lightheadedness Gastrointestinal: Reports: Abdominal Pain (upper epigastric), Difficulty Swallowing. Denies: Decreased Appetite, Diarrhea, Nausea, Vomiting Genitourinary: Reports: No Symptoms Skin: Reports: Dryness Neurological: Reports: Difficulty Walking, Weakness. Denies: Confusion Psychiatric: Reports: Depression - Patient Data Vitals - Most Recent: Last Vital Signs Temp 97.2 F 09/09/21 06:21 Pulse 110 H 09/09/21 06:21 Resp 20 09/09/21 06:21 BP 127/76 09/09/21 06:21 Pulse Ox 95 09/09/21 06:21 Weight - Most Recent: 120 lb 12.801 oz I&O - Last 24 Hours: Intake & Output 09/08/21 09/09/21 09/09/21 22:59 06:59 14:59 Intake Total 30 1284 Balance 30 1284 Lab Results Last 24 Hours: Laboratory Results - last 24 hr 09/08/21 09/08/21 09/09/21 Range/Units 16:56 16:56 08:00 WBC 15.40 H (5.00-10.00) 10^3/uL RBC 3.33 L (3.80-5.50) 10^6/uL Hgb 10.5 L D (12.0-16.0) g/dL Hct 32.2 L (37.0-47.0) % MCV 96.7 H (82.0-92.0) fL MCH 31.5 H (27.0-31.0) pg MCHC 32.6 (32.0-36.0) g/dL RDW 15.7 H (11.5-14.5) % Plt Count 387 D (150-400) 10^3/uL MPV 8.2 (7.4-10.4) fL Sodium 135 L (136-145) mmol/L Potassium 3.7 (3.5-5.1) mmol/L Chloride 98 (98-107) mmol/L Carbon Dioxide 26.1 (21.0-32.0) mmol/L Anion Gap 14.6 (5-15) mmol/L BUN 5 L (7-18) mg/dL Creatinine 0.47 L (0.51-1.17) mg/dL Est Cr Clr Drug Dosing 112.86 mL/min Estimated GFR (MDRD) > 60 mL/min Glucose 89 (70-140) mg/dL Calcium 7.6 L (8.7-10.3) mg/dL Total Bilirubin 0.5 (0.2-1.0) mg/dL AST 43 H (15-37) U/L ALT 14 (14-63) U/L Alkaline Phosphatase 130 H (46-116) U/L C-Reactive Protein > 11.0 H (0.0-0.9) mg/dL Total Protein 5.9 L (6.4-8.2) g/dL Albumin 1.78 L (3.40-5.00) g/dL TSH, Ultra Sensitive 0.962 (0.340-4.820) uIU/mL Med Orders - Current: Current Medications Acetaminophen (Acetaminophen 325 Mg Tab) 650 mg PO Q4H PRN PRN Reason: Pain Cyclobenzaprine HCl (Cyclobenzaprine 5 Mg Tab) 5 mg PO Q8H PRN PRN Reason: Pain Last Admin: 09/08/21 18:18 Dose: 5 mg Documented by: Sodium Chloride (Normal Saline) 1,000 mls @ 100 mls/hr IV ASDIRECTED [facility] Last Admin: 09/09/21 01:46 Dose: 100 mls/hr Documented by: Ondansetron HCl (Ondansetron 4 Mg Tab.Dis) 4 mg PO Q4H PRN PRN Reason: nausea, able to take PO Pantoprazole Sodium (Pantoprazole 40 Mg Vial) 40 mg IVPUSH Q12H [facility] Last Admin: 09/09/21 05:37 Dose: 40 mg Documented by: Sodium Chloride (Sodium Chloride 0.9% 10 Ml Syringe) 10 ml FLUSH Q8HR PRN PRN Reason: keep vein open Discontinued Medications Acetaminophen (Acetaminophen 325 Mg Tab) Confirm Administered Dose 650 mg .ROUTE .STK-MED ONE Stop: 09/09/21 00:17 Last Admin: 09/09/21 00:18 Dose: 650 mg Documented by: - Exam Quality Assessment: No: Supplemental Oxygen General: Alert, Oriented Neck: Supple Lungs: Decreased Breath Sounds (left side) Peripheral Pulses: 2+: Radial (R), Femoral (L) Skin: Other (pallor) Neurological: Normal Speech, Normal Tone, Sensation Intact, Cranial Nerves Intact Psy/Mental Status: Alert, Other (flat affect. ) - Patient Data Lab Results Last 24 hrs: Laboratory Results - last 24 hr 09/08/21 09/08/21 09/09/21 Range/Units 16:56 16:56 08:00 WBC 15.40 H (5.00-10.00) 10^3/uL RBC 3.33 L (3.80-5.50) 10^6/uL Hgb 10.5 L D (12.0-16.0) g/dL Hct 32.2 L (37.0-47.0) % MCV 96.7 H (82.0-92.0) fL MCH 31.5 H (27.0-31.0) pg MCHC 32.6 (32.0-36.0) g/dL RDW 15.7 H (11.5-14.5) % Plt Count 387 D (150-400) 10^3/uL MPV 8.2 (7.4-10.4) fL Sodium 135 L (136-145) mmol/L Potassium 3.7 (3.5-5.1) mmol/L Chloride 98 (98-107) mmol/L Carbon Dioxide 26.1 (21.0-32.0) mmol/L Anion Gap 14.6 (5-15) mmol/L BUN 5 L (7-18) mg/dL Creatinine 0.47 L (0.51-1.17) mg/dL Est Cr Clr Drug Dosing 112.86 mL/min Estimated GFR (MDRD) > 60 mL/min Glucose 89 (70-140) mg/dL Calcium 7.6 L (8.7-10.3) mg/dL Total Bilirubin 0.5 (0.2-1.0) mg/dL AST 43 H (15-37) U/L ALT 14 (14-63) U/L Alkaline Phosphatase 130 H (46-116) U/L C-Reactive Protein > 11.0 H (0.0-0.9) mg/dL Total Protein 5.9 L (6.4-8.2) g/dL Albumin 1.78 L (3.40-5.00) g/dL TSH, Ultra Sensitive 0.962 (0.340-4.820) uIU/mL Result Diagrams: 09/08/21 16:56 09/08/21 16:56 Sepsis Event Note - Evaluation Sepsis Screening Result: No Definite Risk - Focused Exam Vital Signs: Vital Signs Temp Pulse Resp BP Pulse Ox 09/09/21 06:21 97.2 F 110 H 20 127/76 95 - Problem List Review Problem List Initiated/Reviewed/Updated: Yes - My Orders Last 24 Hours: My Active Orders 09/08/21 16:00 Sodium Chloride 0.9% [Normal Saline] 1,000 ml IV ASDIRECTED 09/08/21 16:07 Patient Status [ADT] Urgent Height and Weight [RC] UPON May Shower [RC] ASDIRECTED Oxygen Therapy [RC] .PRN Up With Assistance [RC] ASDIRECTED Up to Chair [RC] ASDIRECTED VTE/DVT Education [RC] PER UNIT ROUTINE Vital Signs [RC] Q8H Ondansetron [Zofran ODT] 4 mg PO Q4H PRN Sodium Chloride 0.9% [Saline Flush] 10 ml FLUSH Q8HR PRN Peripheral IV Insertion Adult [OM.PC] Routine Resuscitation Status Routine 09/08/21 16:08 Intake and Output [RC] 1400,2200,0600 09/08/21 16:10 Peripheral IV Care [RC] . DIRECTED 09/08/21 17:00 Pantoprazole [ProTONIX IV] 40 mg IVPUSH Q12H 09/08/21 17:18 Cyclobenzaprine [Flexeril] 5 mg PO Q8H PRN 09/08/21 Dinner Mechanical Soft Diet [DIET] NPO After Midnight [Nothing per Oral After Midnight Diet] [DIET] 09/09/21 00:06 Acetaminophen [TylenoL] 650 mg PO Q4H PRN - Plan Plan:: History of Present Illness Vicki is a 56-year-old (appears older than stated age) here today due to extremely weakness, lightheadedness, decrease in appetite as she states she has not eaten much in 7 days along with abdominal fullness. Denies any fevers ho wever she does complain of lumps bilateral base of neck. She states she has not been able to eat very much as she feels she gets full rather quickly. Last BM ~ 1week ago. She has had a weight loss of approximately 5 pounds over the past month or two according to records. Patient will be admitted into observation status for further work-up/diagnostics as she does have a heart rate of 120, weakness, lightheadedness, and appears quite dehydrated. Likely will need abdominal/pelvis CT. Was recently seen in ED and treated with course of Zithromax due to cough. Hospital course 09/09/2021 (); no overnight calls or concerns, Patient voiding however no documented output. Patient tolerated IV fluids. Concerning chest x- ray last night therefore made NPO status for further diagnostics today. Primary Hospital Problems --Anemia, 3 g loss past month, concerning for malignancy --Elevated white count, likely leukocytosis, doubtful occult infection --Pleural effusion, Left, moderate, likely will need diagnostic thoracentesis --Decrease appetite with Wt Loss --Esophageal dysphagia, lower --Constipation, profound, holding all treatment modalities until after CT --Dehydration, improved, voiding, cont ivf, PO after CT --Dizziness, improved. Disposition/Overall Plan --Continue with OBS status. admit to [facility] OBS status for further testing, worrisome sx suggestive of Cancer. --Chest abdomen and pelvis CT with contrast IV/oral FEN: IV NS 100mL/hr, Na+ K+ acceptable, can eat soft diet after CT,
[2021-09-09] MEDS ORDERED: hydrOXYzine HCL 100 MG/2 ML SDV IM ONE (10:59)
[2021-09-09] MEDS ORDERED: predniSONE 20 MG Tab ONE (11:18)
--- NOTE | 2021-09-09 13:18 | CT ---
[id number] CT/CT Chest W IV EXAM: CT Chest W IV CLINICAL DATA: MASS. COMPARISON STUDY: Radiograph from September 08, 2021. FINDINGS: Lungs: Complete atelectasis of the left lower lobe and partial atelectasis of the left upper lobe secondary to bronchial obstruction. Collapsed parenchyma throughout the left lower lobe demonstrates heterogeneous density and enhancement. Findings are nonspecific but can be seen with parenchymal necrosis. Moderate left and small right pleural effusions. Apical predominant parenchymal emphysema in both lungs. Mediastinum: Extensive enhancing soft tissue throughout the mediastinum encasing the great vessels, trachea, and mainstem bronchi. Mass extends into the superior mediastinum/prevascular norris stations as well as the base of the neck and bilateral supraclavicular fossa. Heart and great vessels: Moderate stenosis of the superior SVC at the confluence of the innominate vein secondary to an encasing mass. Thoracic aorta demonstrates atherosclerosis but is normal in caliber. Heart is normal in size. Trace amount pericardial fluid. Bones and soft tissues: Left axillary lymphadenopathy. Largest node measures approximately 14 mm in short axis dimension. Refer to report of CT abdomen/pelvis for description of findings. IMPRESSION: Extensive confluent massive lymphadenopathy throughout the mediastinum extending into the bilateral hilar regions left greater than right as well as the superior mediastinum, base of the neck, and bilateral supraclavicular fossa. Left axillary lymphadenopathy as well. Appearance and distribution of findings is somewhat nonspecific but suggest lymphoma or primary lung neoplasm. However, findings are superimposed on changes of parenchymal emphysema suggesting emphysema and possible smoking history. Lung neoplasm with norris metastases should be considered. Complete atelectasis of the left lower lobe with parenchymal heterogeneity suggesting possible parenchymal necrosis. Jostin Trujillo MD 09/09/21 [id number] Thank you for allowing us to participate in the care of your patient.
--- NOTE | 2021-09-09 13:46 | CT ---
[id number] CT/CT Abdomen Pelvis W IV EXAM: CT Abdomen Pelvis W IV CLINICAL DATA: ABDOMINAL PAIN ADENOPATHY COMPARISON: NO PREVIOUS SIMILAR EXAM IS AVAILABLE. FINDINGS: There is chronic liver disease, splenomegaly, and moderate ascites. Multiple gastric varices are seen. There are moderate bilateral pleural effusions. Thickening of the wall of the stomach is seen Thickening of the wall of the distal small bowel and large bowel is seen This likely relates to mesenteric venous hypertension and/or hypoalbuminemia. The liver and spleen show no focal abnormalities. There is no in pancreatic mass or pancreatitis. There is mild mesenteric and retroperitoneal adenopathy The gallbladder is not distended. The kidneys, adrenals, and aorta show no acute abnormalities There are diffuse atheromatous calcifications. The pelvis shows no mass or adenopathy There is no evidence of appendicitis Bone density of the bony pelvis is inhomogeneous and decreased IMPRESSION: CHRONIC LIVER DISEASE ASCITES BILATERAL EFFUSIONS SUBMUCOSAL THICKENING OF STOMACH, LARGE BOWEL, AND SMALL BOWEL MILD SPLENOMEGALY MILD RETROPERITONEAL AND MESENTERIC ADENOPATHY DECREASED BONE DENSITY OF PELVIS Bora Hinton MD 09/09/21 0400 Thank you for allowing us to participate in the care of your patient.
[2021-09-09] MEDS: Acetaminophen 325 MG Tab PO PRN (14:39)
[2021-09-09] MEDS: Acetaminophen/HYDROcodone 325-10 MG Tab PO PRN ×2 (16:17→20:51)
[2021-09-09] MEDS: Docusate Sodium 100 MG Cap PO SCH (20:51)
[2021-09-10] MEDS: Acetaminophen/HYDROcodone 325-10 MG Tab PO PRN ×4 (05:00→21:05)
[2021-09-10] MEDS: Pantoprazole 40 MG Vial IVPUSH SCH ×2 (05:00→16:35)
[2021-09-10] MEDS: Docusate Sodium 100 MG Cap PO SCH ×2 (08:11→21:03)
[2021-09-10] MEDS: Naloxegol Oxalate 25 MG Tab PO SCH (08:11)
[2021-09-10 09:15] LABS: ANION GAP 14.8 mmol/L (5-15); CHLORIDE,CL 100 mmol/L (98-107); SODIUM,NA 135 mmol/L (136-145)
--- NOTE | 2021-09-10 09:37 | PCM.PN ---
- General Info Date of Service: 09/10/21 Admission Dx/Problem (Free Text): Admission Diagnosis/Problem Admission Diagnosis/Problem Dehydration - Review of Systems Systems Review Comment:: Vicki is seen today on inpatient rounds. She was a direct admission to the hospital after a clinic appointment on 09/08 for weakness, lightheadedness, decr eased appetite, constipation. She was noted to have palpable lymphadenopathy in her neck, CXR was performed with mediastinal findings and chest CT was performed as well as abdomen/pelvis and she was noted to have extensive lymphadenopathy throughout the mediastinum extending to the bilateral hilar regions, the base of the neck and bilateral supraclavicular fossa, concerning for a neoplastic proce ss. She is a smoker. Abdomen/pelvis with thickening of the stomach wall and distal small bowel and large bowel with ascites and mild splenomegaly. Mandeep Rodriguez, [employer] who admitted her, spoke to Dr. Frank, oncologist at [facility] who agreed for a direct admission for further work-up, however, there were no available beds and so we have been instructed to call back daily at 11AM for a bed status. When I see Vicki this morning she is sitting up in bed. She is feeling minimally better. She had a large BM yesterday which was a relief for her. She was actually able to eat her entire breakfast this morning, the first time in many days she has really been able to eat. She is somewhat SOB but not requiring oxygen. When I mention to her that if no beds are available and she clinically improves she would be able to go home with outpatient oncology appointment and work-up. She states she doesn't have a car of money for gas and isn't sure how she would do that. - Patient Data Vitals - Most Recent: Last Vital Signs Temp 99.7 F 09/10/21 06:42 Pulse 114 H 09/10/21 06:42 Resp 20 09/10/21 06:42 BP 99/66 09/10/21 06:42 Pulse Ox 91 L 09/10/21 06:42 Weight - Most Recent: 120 lb 12.801 oz I&O - Last 24 Hours: Intake & Output 09/09/21 09/10/21 09/10/21 22:59 06:59 14:59 Intake Total 980 830 Balance 980 830 Lab Results Last 24 Hours: Laboratory Results - last 24 hr 09/10/21 09/10/21 Range/Units 08:40 08:40 WBC 12.87 H (5.00-10.00) 10^3/uL RBC 3.49 L (3.80-5.50) 10^6/uL Hgb 11.0 L (12.0-16.0) g/dL Hct 33.9 L (37.0-47.0) % MCV 97.1 H (82.0-92.0) fL MCH 31.5 H (27.0-31.0) pg MCHC 32.4 (32.0-36.0) g/dL RDW 16.0 H (11.5-14.5) % Plt Count 377 (150-400) 10^3/uL MPV 8.1 (7.4-10.4) fL Immature Gran % (Auto) 0.2 (0.0-5.0) % Neut % (Auto) 79.9 H (50.0-70.0) % Lymph % (Auto) 11.7 L (20.0-40.0) % Morris % (Auto) 6.8 (2.0-8.0) % Eos % (Auto) 1.2 (1.0-3.0) % Baso % (Auto) 0.2 (0.0-1.0) % Neut # (Auto) 10.28 H (2.50-7.00) 10^3/uL Lymph # (Auto) 1.50 (1.00-4.00) 10^3/uL Morris # (Auto) 0.88 H (0.10-0.80) 10^3/uL Eos # (Auto) 0.15 (0.10-0.30) 10^3/uL Baso # (Auto) 0.03 (0.00-0.10) 10^3/uL Immature Gran # (Auto) 0.03 (0.00-0.50) 10^3/uL Sodium 135 L (136-145) mmol/L Potassium 3.5 (3.5-5.1) mmol/L Chloride 100 (98-107) mmol/L Carbon Dioxide 23.7 (21.0-32.0) mmol/L Anion Gap 14.8 (5-15) mmol/L BUN 4 L (7-18) mg/dL Creatinine 0.41 L (0.51-1.17) mg/dL Est Cr Clr Drug Dosing 129.37 mL/min Estimated GFR (MDRD) > 60 mL/min Glucose 150 H (70-140) mg/dL Calcium 7.5 L (8.7-10.3) mg/dL Med Orders - Current: Current Medications Acetaminophen (Acetaminophen 325 Mg Tab) 650 mg PO Q4H PRN PRN Reason: Pain Last Admin: 09/09/21 14:39 Dose: 650 mg Documented by: Hydrocodone Bitart/Acetaminophen (Acetaminophen/Hydrocodone 325-10 Mg Tab) 1 tab PO Q4H PRN PRN Reason: Pain Last Admin: 09/10/21 05:00 Dose: 1 tab Documented by: Cyclobenzaprine HCl (Cyclobenzaprine 5 Mg Tab) 5 mg PO Q8H PRN PRN Reason: Pain Last Admin: 09/08/21 18:18 Dose: 5 mg Documented by: Docusate Sodium (Docusate Sodium 100 Mg Cap) 100 mg PO BID [facility] Last Admin: 09/10/21 08:11 Dose: 100 mg Documented by: Sodium Chloride (Normal Saline) 1,000 mls @ 70 mls/hr IV ASDIRECTED [facility] Last Admin: 09/09/21 22:26 Dose: 70 mls/hr Documented by: Sodium Chloride (Normal Saline) 50 mls @ 200 mls/hr IV ASDIRECTED [facility] Last Admin: 09/09/21 13:16 Dose: 200 mls/hr Documented by: Naloxegol (Naloxegol Oxalate 25 Mg Tab) 25 mg PO DAILY [facility] Last Admin: 09/10/21 08:11 Dose: 25 mg Documented by: Ondansetron HCl (Ondansetron 4 Mg Tab.Dis) 4 mg PO Q4H PRN PRN Reason: nausea, able to take PO Pantoprazole Sodium (Pantoprazole 40 Mg Vial) 40 mg IVPUSH Q12H [facility] Last Admin: 09/10/21 05:00 Dose: 40 mg Documented by: Prednisone (Prednisone 20 Mg Tab) 40 mg PO ONETIME ONE Stop: 09/10/21 11:02 Sodium Chloride (Sodium Chloride 0.9% 10 Ml Syringe) 10 ml FLUSH Q8HR PRN PRN Reason: keep vein open Discontinued Medications Acetaminophen (Acetaminophen 325 Mg Tab) Confirm Administered Dose 650 mg .ROUTE .STK-MED ONE Stop: 09/09/21 00:17 Last Admin: 09/09/21 00:18 Dose: 650 mg Documented by: Diatrizoate Meglum/Diatrizoate Sod (Diatrizoate Meglumine/Diatrizoate Sodium 37% 30 Ml Bottle) 30 ml PO ONETIME ONE Stop: 09/09/21 09:25 Last Admin: 09/09/21 13:16 Dose: 30 ml Documented by: Hydroxyzine HCl (Hydroxyzine Hcl 100 Mg/2 Ml Sdv) 75 mg IM ONETIME ONE Stop: 09/09/21 11:00 Last Admin: 09/09/21 11:24 Dose: 75 mg Documented by: Iopamidol (Iopamidol 755 Mg/Ml 75 Ml Bottle) 75 ml IVPUSH ONETIME ONE Stop: 09/09/21 09:25 Last Admin: 09/09/21 13:16 Dose: 75 ml Documented by: Prednisone (Prednisone 20 Mg Tab) Confirm Administered Dose 40 mg .ROUTE .STK- MED ONE Stop: 09/09/21 11:19 Last Admin: 09/09/21 12:47 Dose: Not Given Documented by: - Exam General: Alert, Oriented, Cooperative, No Acute Distress Neck: Lymphadenopathy (Painful lymph node in the left supraclavicular region, adenopathy on the right as well which is not tender) Lungs: Decreased Breath Sounds (Left lung base), Crackles (Upper lung alegre) Cardiovascular: Regular Rhythm, Tachycardia GI/Abdominal Exam: Normal Bowel Sounds, Soft, Tender (LUQ tenderness.) - Patient Data Lab Results Last 24 hrs: Laboratory Results - last 24 hr 09/10/21 09/10/21 Range/Units 08:40 08:40 WBC 12.87 H (5.00-10.00) 10^3/uL RBC 3.49 L (3.80-5.50) 10^6/uL Hgb 11.0 L (12.0-16.0) g/dL Hct 33.9 L (37.0-47.0) % MCV 97.1 H (82.0-92.0) fL MCH 31.5 H (27.0-31.0) pg MCHC 32.4 (32.0-36.0) g/dL RDW 16.0 H (11.5-14.5) % Plt Count 377 (150-400) 10^3/uL MPV 8.1 (7.4-10.4) fL Immature Gran % (Auto) 0.2 (0.0-5.0) % Neut % (Auto) 79.9 H (50.0-70.0) % Lymph % (Auto) 11.7 L (20.0-40.0) % Morris % (Auto) 6.8 (2.0-8.0) % Eos % (Auto) 1.2 (1.0-3.0) % Baso % (Auto) 0.2 (0.0-1.0) % Neut # (Auto) 10.28 H (2.50-7.00) 10^3/uL Lymph # (Auto) 1.50 (1.00-4.00) 10^3/uL Morris # (Auto) 0.88 H (0.10-0.80) 10^3/uL Eos # (Auto) 0.15 (0.10-0.30) 10^3/uL Baso # (Auto) 0.03 (0.00-0.10) 10^3/uL Immature Gran # (Auto) 0.03 (0.00-0.50) 10^3/uL Sodium 135 L (136-145) mmol/L Potassium 3.5 (3.5-5.1) mmol/L Chloride 100 (98-107) mmol/L Carbon Dioxide 23.7 (21.0-32.0) mmol/L Anion Gap 14.8 (5-15) mmol/L BUN 4 L (7-18) mg/dL Creatinine 0.41 L (0.51-1.17) mg/dL Est Cr Clr Drug Dosing 129.37 mL/min Estimated GFR (MDRD) > 60 mL/min Glucose 150 H (70-140) mg/dL Calcium 7.5 L (8.7-10.3) mg/dL Result Diagrams: 09/10/21 08:40 09/10/21 08:40 Sepsis Event Note - Evaluation Sepsis Screening Result: No Definite Risk - Focused Exam Vital Signs: Vital Signs Temp Pulse Resp BP Pulse Ox 09/10/21 06:42 99.7 F 114 H 20 99/66 91 L 09/09/21 22:43 97.8 F 112 H 20 94/50 L 91 L - Problem List Review Problem List Initiated/Reviewed/Updated: Yes - Plan Plan:: Hospital course 09/09/2021 (); no overnight calls or concerns, Patient voiding however no documented output. Patient tolerated IV fluids. Concerning chest x- ray last night therefore made NPO status for further diagnostics today. 09/10: No calls overnight, await bed at [facility] for further work-up of probably malignancy Primary Hospital Problems --Anemia, 3 g loss past month, concerning for malignancy, stable --Elevated white count, likely leukocytosis, doubtful occult infection --Pleural effusion, Left, moderate, likely will need diagnostic thoracentesis --Decrease appetite with Wt Loss, able to eat full breakfast 09/10 --Esophageal dysphagia, lower, improved --Constipation, profound, holding all treatment modalities until after CT, large BM 09/09 --Dehydration, improved, voiding, cont ivf, PO after CT --Dizziness, improved. Disposition/Overall Plan --Admit to inpatient 09/09 at 17:30, hopeful for transfer to higher level of care for additional work-up FEN: IV NS 100mL/hr, regular diet
[2021-09-10] MEDS ORDERED: diphenhydrAMINE 25 MG/10 ML Cup PO ONE (10:25)
[2021-09-10] MEDS ORDERED: Hydrocortisone 2.5% Crm 30 GM Tube TOP PRN (10:25)
[2021-09-10] MEDS ORDERED: predniSONE 20 MG Tab PO ONE (11:01)
[2021-09-10] MEDS: Sodium Chloride 0.9% 1,000 ML IV SCH ×2 (12:35→22:37)
[2021-09-10] MEDS: Acetaminophen 325 MG Tab PO PRN (14:15)
[2021-09-11] MEDS: Pantoprazole 40 MG Vial IVPUSH SCH (05:00)
[2021-09-11] MEDS: Acetaminophen/HYDROcodone 325-10 MG Tab PO PRN (05:04)
[2021-09-11 05:22] VITALS: BP 118/74; PULSE 105
[2021-09-11 07:46] LABS: ANION GAP 14.4 mmol/L (5-15); CHLORIDE,CL 102 mmol/L (98-107); SODIUM,NA 138 mmol/L (136-145)
[2021-09-11] MEDS: Naloxegol Oxalate 25 MG Tab PO SCH (08:24)
[2021-09-11] MEDS: Docusate Sodium 100 MG Cap PO SCH (08:24)
--- NOTE | 2021-09-11 10:23 | PCM.DCSUM1 ---
Discharge Summary - Hospital Course Diagnosis: Stroke: No - Discharge Data Discharge Date: 09/11/21 Discharge Disposition: Home, Self-Care 01 Condition: Fair - Referral to Home Health Primary Care Physician: Jackie Jáurez MD - Patient Instructions Diet: Usual Diet as Tolerated Activity: As Tolerated Driving: Do Not Drive Showering/Bathing: May Shower Notify Provider of: Fever, Increased Pain, Nausea and/or Vomiting - Discharge Plan *PRESCRIPTION DRUG MONITORING PROGRAM REVIEWED*: Not Applicable *COPY OF PRESCRIPTION DRUG MONITORING REPORT IN PATIENT JON: Not Applicable Prescriptions/Med Rec: Docusate Sodium [Colace] 100 mg PO BID #60 cap oxyCODONE 5 mg PO Q8H PRN #30 tab PRN Reason: Pain Sennosides/Docusate Sodium [Senna Plus 8.6-50 mg Tablet] 1 each PO DAILY PRN #30 tablet PRN Reason: Constipation Home Medications: Home Meds Cyclobenzaprine HCl 10 mg PO TID PRN 03/06/19 [History] carisoprodoL [Carisoprodol] 350 mg PO TID 08/12/21 [History] Cyclobenzaprine [Flexeril] 5 mg PO Q8H PRN tablet 09/11/21 [Rx] Docusate Sodium [Colace] 100 mg PO BID #60 cap 09/11/21 [Rx] Hydrocortisone [Proctozone-HC 2.5% Crm] 1 gm TOP TID PRN tube 09/11/21 [Rx] Sennosides/Docusate Sodium [Senna Plus 8.6-50 mg Tablet] 1 each PO DAILY PRN #30 tablet 09/11/21 [Rx] oxyCODONE 5 mg PO Q8H PRN #30 tab 09/11/21 [Rx] - Discharge Summary/Plan Comment DC Time >30 min.: Yes Total # of Minutes for Discharge Time: 45 minutes Discharge Summary/Plan Comment: Final diagnosis --Anemia, 3 g loss past month, concerning for malignancy, stable --Elevated white count, likely leukocytosis, doubtful occult infection --Pleural effusion, Left, moderate, likely will need diagnostic thoracentesis --Decrease appetite with Wt Loss, able to eat full breakfast 09/11 --Esophageal dysphagia, lower, improved --Constipation, improving --Dehydration, resolved. History summary Vicki is a 56-year-old was admitted into the hospital due to extremely weakness, lightheadedness, decrease in appetite as she states she has not eaten much in 7 days along with abdominal fullness. Denies any fevers however she does complain of lumps bilateral base of neck. She states she has not been able to eat very much as she feels she gets full rather quickly. She has had a weight loss of approximately 5 pounds over the past month or two according to records. She was noted to have palpable lymphadenopathy in her neck, CXR was performed with mediastinal findings and chest CT was performed as well as abdomen/pelvis and she was noted to have extensive lymphadenopathy throughout the mediastinum extending to the bilateral hilar regions, the base of the neck and bilateral supraclavicular fossa, concerning for a neoplastic process. She is a smoker. Abdomen/pelvis with thickening of the stomach wall and distal small bowel and large bowel with ascites and mild splenomegaly. Hospital course 09/09/2021 (); no overnight calls or concerns, Patient voiding however no documented output. Patient tolerated IV fluids. Concerning chest x- ray last night therefore made NPO status for further diagnostics today. 09/10: No calls overnight, await bed at [facility] for further work-up of probably malignancy 09/11, patient sitting up in bed this morning looking very well, no pain, no nausea, no overnight concerns. K+ 3.3, no fever, Medication changes/adjustments upon discharge --Oxycodone 5 mg p.o. every 8 hours as needed #30 --Colace 100 mg p.o. twice daily --Senna S as directed Disposition Patient will be discharged from [facility], she is met all criteria for discharge. Referrals for surgery Boone Mota. Discussed transportation assistance. - General Info Functional Status: Reports: Pain Controlled, Tolerating Diet. Denies: Ambulating - Review of Systems General: Reports: Appetite (good ). Denies: Fever, Weakness Pulmonary: Reports: No Symptoms Cardiovascular: Reports: No Symptoms Gastrointestinal: Denies: Abdominal Pain, Constipation, Decreased Appetite, Diarrhea, Nausea, Vomiting Genitourinary: Reports: No Symptoms Musculoskeletal: Denies: Back Pain Neurological: Denies: Confusion, Pre-Existing Deficit, Weakness Psychiatric: Reports: No Symptoms - Patient Data Vitals - Most Recent: Last Vital Signs Temp 97.7 F 09/11/21 05:21 Pulse 105 H 09/11/21 05:21 Resp 18 09/11/21 05:21 BP 118/74 09/11/21 05:21 Pulse Ox 93 L 09/11/21 05:21 Weight - Most Recent: 123 lb 7 oz I&O - Last 24 hours: Intake & Output 09/10/21 09/11/21 09/11/21 22:59 06:59 14:59 Intake Total 1167 1342 Output Total 400 450 Balance 767 892 Lab Results - Last 24 hrs: Laboratory Results - last 24 hr 09/11/21 09/11/21 Range/Units 07:10 07:10 WBC 12.23 H (5.00-10.00) 10^3/uL RBC 3.17 L (3.80-5.50) 10^6/uL Hgb 9.9 L (12.0-16.0) g/dL Hct 30.5 L (37.0-47.0) % MCV 96.2 H (82.0-92.0) fL MCH 31.2 H (27.0-31.0) pg MCHC 32.5 (32.0-36.0) g/dL RDW 16.0 H (11.5-14.5) % RDW Coeff of Jenifer 16.0 Plt Count 374 (150-400) 10^3/uL MPV 8.2 (7.4-10.4) fL Neutrophils % (Manual) 73 H (50-70) % Lymphocytes % (Manual) 21 (20-40) % Monocytes % (Manual) 4 (2-8) % Eosinophils % (Manual) 2 (1-3) % Platelet Estimate Adequate Sodium 138 (136-145) mmol/L Potassium 3.3 L (3.5-5.1) mmol/L Chloride 102 (98-107) mmol/L Carbon Dioxide 24.9 (21.0-32.0) mmol/L Anion Gap 14.4 (5-15) mmol/L BUN 5 L (7-18) mg/dL Creatinine 0.36 L (0.51-1.17) mg/dL Est Cr Clr Drug Dosing 150.56 mL/min Estimated GFR (MDRD) > 60 mL/min Glucose 93 (70-140) mg/dL Calcium 7.3 L (8.7-10.3) mg/dL Med Orders - Current: Current Medications Acetaminophen (Acetaminophen 325 Mg Tab) 650 mg PO Q4H PRN PRN Reason: Pain Last Admin: 09/10/21 14:15 Dose: 650 mg Documented by: Hydrocodone Bitart/Acetaminophen (Acetaminophen/Hydrocodone 325-10 Mg Tab) 1 tab PO Q4H PRN PRN Reason: Pain Last Admin: 09/11/21 05:04 Dose: 1 tab Documented by: Cyclobenzaprine HCl (Cyclobenzaprine 5 Mg Tab) 5 mg PO Q8H PRN PRN Reason: Pain Last Admin: 09/08/21 18:18 Dose: 5 mg Documented by: Docusate Sodium (Docusate Sodium 100 Mg Cap) 100 mg PO BID [facility] Last Admin: 09/11/21 08:24 Dose: 100 mg Documented by: Hydrocortisone (Hydrocortisone 2.5% Crm 30 Gm Tube) 1 gm TOP TID PRN PRN Reason: Itching Sodium Chloride (Normal Saline) 50 mls @ 200 mls/hr IV ASDIRECTED [facility] Last Admin: 09/09/21 13:16 Dose: 200 mls/hr Documented by: Sodium Chloride (Normal Saline) 1,000 mls @ 100 mls/hr IV ASDIRECTED [facility] Last Admin: 09/10/21 22:37 Dose: 100 mls/hr Documented by: Naloxegol (Naloxegol Oxalate 25 Mg Tab) 25 mg PO DAILY [facility] Last Admin: 09/11/21 08:24 Dose: 25 mg Documented by: Ondansetron HCl (Ondansetron 4 Mg Tab.Dis) 4 mg PO Q4H PRN PRN Reason: nausea, able to take PO Pantoprazole Sodium (Pantoprazole 40 Mg Vial) 40 mg IVPUSH Q12H [facility] Last Admin: 09/11/21 05:00 Dose: 40 mg Documented by: Sodium Chloride (Sodium Chloride 0.9% 10 Ml Syringe) 10 ml FLUSH Q8HR PRN PRN Reason: keep vein open Discontinued Medications Acetaminophen (Acetaminophen 325 Mg Tab) Confirm Administered Dose 650 mg .ROUTE .STK-MED ONE Stop: 09/09/21 00:17 Last Admin: 09/09/21 00:18 Dose: 650 mg Documented by: Diatrizoate Meglum/Diatrizoate Sod (Diatrizoate Meglumine/Diatrizoate Sodium 37% 30 Ml Bottle) 30 ml PO ONETIME ONE Stop: 09/09/21 09:25 Last Admin: 09/09/21 13:16 Dose: 30 ml Documented by: Diphenhydramine HCl (Diphenhydramine 25 Mg/10 Ml Cup) 50 mg PO ONETIME ONE Stop: 09/10/21 10:26 Last Admin: 09/10/21 10:54 Dose: 50 mg Documented by: Hydroxyzine HCl (Hydroxyzine Hcl 100 Mg/2 Ml Sdv) 75 mg IM ONETIME ONE Stop: 09/09/21 11:00 Last Admin: 09/09/21 11:24 Dose: 75 mg Documented by: Sodium Chloride (Normal Saline) 1,000 mls @ 100 mls/hr IV ASDIRECTED JIM Last Infusion: 09/10/21 10:14 Dose: 100 mls/hr Documented by: Iopamidol (Iopamidol 755 Mg/Ml 75 Ml Bottle) 75 ml IVPUSH ONETIME ONE Stop: 09/09/21 09:25 Last Admin: 09/09/21 13:16 Dose: 75 ml Documented by: Prednisone (Prednisone 20 Mg Tab) 40 mg PO ONETIME ONE Stop: 09/10/21 11:02 Last Admin: 09/10/21 10:31 Dose: 40 mg Documented by: Prednisone (Prednisone 20 Mg Tab) Confirm Administered Dose 40 mg .ROUTE .STK- MED ONE Stop: 09/09/21 11:19 Last Admin: 09/09/21 12:47 Dose: Not Given Documented by: - Exam Quality Assessment: Denies: Supplemental Oxygen, DVT Prophylaxis General: Reports: Alert, Oriented, Cooperative, No Acute Distress Neck: Reports: No JVD Lungs: Reports: Decreased Breath Sounds Cardiovascular: Reports: Regular Rate, Tachycardia (mild ) GI/Abdominal Exam: Distended (not taut ) (Female) Exam: Deferred Back Exam: Denies: CVA Tenderness (L), CVA Tenderness (R) Extremities: No Pedal Edema Skin: Reports: Rash (ant chest ) Neurological: Reports: No New Focal Deficit Psy/Mental Status: Reports: Alert, Normal Affect, Normal Mood
== END 2021-09-11 11:12 | disposition home or self-care (01) | DRG 147 ==
LOC: KA.MS 14:20 → OBSVTOIN 09-09 17:30
PROVIDERS: ADMIT Internal Medicine; ATTEND Internal Medicine
DX: C76.0 Malignant neoplasm of head, face and neck (principal); J90 Pleural effusion, not elsewhere classified; R18.8 Other ascites; D63.0 Anemia in neoplastic disease; R59.1 Generalized enlarged lymph nodes; D72.829 Elevated white blood cell count, unspecified; R13.19 Other dysphagia; K59.00 Constipation, unspecified; E86.0 Dehydration; R16.1 Splenomegaly, not elsewhere classified; G89.29 Other chronic pain; M54.9 Dorsalgia, unspecified; M79.7 Fibromyalgia; M54.2 Cervicalgia; Z90.89 Acquired absence of other organs; Z90.49 Acquired absence of other specified parts of digestive tract; Z98.51 Tubal ligation status; Z91.040 Latex allergy status; Z91.013 Allergy to seafood; Z79.899 Other long term (current) drug therapy; Z87.891 Personal history of nicotine dependence
CPT/HCPCS: 36415; 71046; 71260; 74177; 80048; 80053; 84443; 85007; 85025; 85027; 86140; 96372; 96374; 96376; A9270-GY; C9113; G0378; G0379; J3410; J7030; J7512; Q9963; Q9967

== ENCOUNTER 2021-09-22 15:59 | Inpatient (IN) | payer SELFPAY ==
[2021-09-22] MEDS ORDERED: Sodium Chloride 0.9% 500 ML IV SCH (16:30)
[2021-09-22] MEDS: Sodium Chloride 0.9% 1,000 ML IV SCH ×2 (17:17→23:49)
[2021-09-22] MEDS ORDERED: Cyclobenzaprine 10 MG Tab PO PRN (17:22)
[2021-09-22] MEDS ORDERED: Acetaminophen/oxyCODONE 325-5 MG Tab PO PRN (17:26)
[2021-09-22 17:30] LABS: ANION GAP 16.6 mmol/L (5-15); CHLORIDE,CL 101 mmol/L (98-107); SODIUM,NA 138 mmol/L (136-145)
--- NOTE | 2021-09-22 17:42 | PCM.HP.2 ---
H&P History of Present Illness - General Date of Service: 09/22/21 Admit Problem/Dx: Admission Diagnosis/Problem Admission Diagnosis/Problem Weakness Source of Information: Patient, Family, Old Records - Related Data Allergies/Adverse Reactions: Allergies Allergy/AdvReac Type Severity Reaction Status Date / Time latex Allergy Unknown Anaphylactic Uncoded 09/08/21 14:40 Shock seafood Allergy Unknown Airway Uncoded 09/08/21 14:40 Tightness Home Medications: Home Meds Cyclobenzaprine HCl 10 mg PO TID PRN 03/06/19 [History] carisoprodoL [Carisoprodol] 350 mg PO TID 08/12/21 [History] Acetaminophen [Acetaminophen Extra Strength] 500 mg PO Q4H PRN 09/22/21 [History] Docusate Sodium [Colace] 100 mg PO DAILY 09/22/21 [History] oxyCODONE HCl/Acetaminophen [Oxycodone-Acetaminophen 5-325] 1 tab PO Q4H PRN 09/22/21 [History] Past Medical History - Past Health History Medical/Surgical History: Denies Medical/Surgical History Gastrointestinal History: Reports: Hemorrhoids Genitourinary History: Reports: None 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 Musculoskeletal History: Reports: Back Pain, Chronic, Fracture, Fibromyalgia, Neck Pain, Chronic Oncologic (Cancer) History: Reports: Lung Dermatologic History: Reports: Eczema - Infectious Disease History Infectious Disease History: Reports: Chicken Pox, Measles - Past Surgical History Head Surgeries/Procedures: Reports: None HEENT Surgical History: Reports: Adenoidectomy, Tonsillectomy GI Surgical History: Reports: Appendectomy Female Surgical History: Reports: Tubal Ligation Musculoskeletal Surgical History: Reports: None, Other (See Below) Other Musculoskeletal Surgeries/Procedures:: Left hand, elbow and wrist, Dermatological Surgical History: Reports: None Social & Family History - Family History Family Medical History: No Pertinent Family History - Tobacco Use Tobacco Use Status *Q: Current Every Day Tobacco User Years of Tobacco use: 40 Packs/Tins Daily: 0 - Caffeine Use Caffeine Use: Reports: Coffee, Soda - Recreational Drug Use Recreational Drug Use: No - Living Situation & Occupation Living situation: Reports: with Family Occupation: Employed H&P Review of Systems - Review of Systems: Review Of Systems: See Below General: Reports: Weakness, Fatigue, Decreased Appetite, Weight Loss. Denies: Night Sweats, Weight Gain HEENT: Reports: No Symptoms Pulmonary: Reports: Shortness of Breath Cardiovascular: Denies: Chest Pain, Orthopnea, PND, Blood Pressure Problem Gastrointestinal: Reports: Abdominal Pain, Anorexia, Constipation, Decreased Aime etite, Distension, Flatus, Nausea. Denies: Diarrhea, Difficulty Swallowing, Melena, Vomiting Genitourinary: Reports: No Symptoms Musculoskeletal: Reports: Neck Pain, Muscle Stiffness Skin: Reports: Pallor, Dryness, Wound Psychiatric: Denies: Confusion, Depression, Agitation Neurological: Reports: Pre-Existing Deficit, Trouble Speaking, Difficulty Walking, Weakness, Gait Disturbance. Denies: Dizziness, Paresthesia, Seizure, Syncope, Tremors Hematologic/Lymphatic: Denies: Anemia, Easy Bleeding Immunologic: Reports: No Symptoms Exam - Exam Exam: See Below - Vital Signs Vital Signs: Last Vital Signs Temp 98 F 09/22/21 16:22 Pulse 110 H 09/22/21 16:22 Resp 20 09/22/21 16:22 BP 133/74 09/22/21 16:22 Pulse Ox 95 09/22/21 16:22 Weight: 119 lb 8 oz - Exam Quality Assessment: No: Supplemental Oxygen General: Alert, Oriented HEENT: Conjunctiva Clear. No: Mucosa Moist & [place] Neck: No: Thyromegaly Lungs: Clear to Auscultation, Normal Respiratory Effort Cardiovascular: Tachycardia GI/Abdominal Exam: Distended, Hepatomegaly, Splenomegaly. No: Guarding, Rigid, Rebound, Tender (Female) Exam: Deferred Rectal (Female) Exam: Deferred Back Exam: No: CVA Tenderness (L), CVA Tenderness (R) Extremities: No Pedal Edema Peripheral Pulses: 3+: Radial (L), Radial (R) Skin: Incision (left side of neck from previous bx. ) Neurological: Normal Speech, Normal Tone. No: Normal Gait, Focal Deficit Neuro Extensive - Motor, Sensory, Reflexes: CN II-XII Intact Psychiatric: Alert, Labile Mood - Patient Data Lab Results Last 24 hrs: Laboratory Results - last 24 hr 09/22/21 09/22/21 Range/Units 16:05 16:50 WBC 15.04 H (5.00-10.00) 10^3/uL RBC 3.94 (3.80-5.50) 10^6/uL Hgb 12.2 D (12.0-16.0) g/dL Hct 38.2 (37.0-47.0) % MCV 97.0 H (82.0-92.0) fL MCH 31.0 (27.0-31.0) pg MCHC 31.9 L (32.0-36.0) g/dL RDW 16.7 H (11.5-14.5) % Plt Count 325 (150-400) 10^3/uL MPV 7.9 (7.4-10.4) fL Immature Gran % (Auto) 0.1 (0.0-5.0) % Neut % (Auto) 77.6 H (50.0-70.0) % Lymph % (Auto) 13.1 L (20.0-40.0) % Mccreary % (Auto) 8.3 H (2.0-8.0) % Eos % (Auto) 0.7 L (1.0-3.0) % Baso % (Auto) 0.2 (0.0-1.0) % Neut # (Auto) 11.66 H (2.50-7.00) 10^3/uL Lymph # (Auto) 1.97 (1.00-4.00) 10^3/uL Mccreary # (Auto) 1.25 H (0.10-0.80) 10^3/uL Eos # (Auto) 0.11 (0.10-0.30) 10^3/uL Baso # (Auto) 0.03 (0.00-0.10) 10^3/uL Immature Gran # (Auto) 0.02 (0.00-0.50) 10^3/uL SARS CoV-2 RNA Rapid MARCK Negative (NEGATIVE) Result Diagrams: 09/22/21 16:50 Sepsis Event Note - Focused Exam Vital Signs: Vital Signs Temp Pulse Resp BP Pulse Ox 09/22/21 16:22 98 F 110 H 20 133/74 95 Problem List Initiated/Reviewed/Updated: Yes Orders Last 24hrs: Active Orders 24 hr Category Date Time Status Patient Status [ADT] Routine ADT 09/22/21 16:20 Active Vital Signs [RC] 07,15,23 Care 09/22/21 16:22 Active Consult to Case Management/Regional Sales Director [CONS] Cons 09/22/21 16:38 Active Routine COMPREHENSIVE METABOLIC PN,CMP [CHEM] Routine Lab 09/22/21 16:45 Ordered MAGNESIUM [CHEM] Routine Lab 09/22/21 16:45 Ordered Acetaminophen [Tylenol Extra Strength] Med 09/22/21 17:22 Ordered 500 mg PO Q4H PRN Acetaminophen/oxyCODONE [Percocet 325-5 MG] Med 09/22/21 17:26 Ordered 1 tab PO Q4H PRN Cyclobenzaprine [Flexeril] Med 09/22/21 17:22 Ordered 10 mg PO TID PRN Docusate Sodium [Colace] Med 09/22/21 17:30 Ordered 100 mg PO TID Magnesium Hydroxide [Milk of Magnesia] Med 09/22/21 17:30 Ordered 30 ml PO BID Naloxegol Oxalate [Movantik] Med 09/23/21 09:00 Ordered 25 mg PO DAILY Sodium Chloride 0.9% [Normal Saline] 1,000 ml Med 09/22/21 17:02 Active IV ASDIRECTED Resuscitation Status Routine Resus Stat 09/22/21 16:22 Ordered Medication Orders Acetaminophen (Acetaminophen 500 Mg Tab) 500 mg PO Q4H PRN PRN Reason: Pain Cyclobenzaprine HCl (Cyclobenzaprine 10 Mg Tab) 10 mg PO TID PRN PRN Reason: Muscle Spasm - Painful Docusate Sodium (Docusate Sodium 100 Mg Cap) 100 mg PO TID JIM Sodium Chloride (Normal Saline) 1,000 mls @ 70 mls/hr IV ASDIRECTED JIM Last Admin: 09/22/21 17:17 Dose: 70 mls/hr Documented by: ERIC Naloxegol (Naloxegol Oxalate 25 Mg Tab) 25 mg PO DAILY JIM Oxycodone/Acetaminophen (Acetaminophen/Oxycodone 325-5 Mg Tab) 1 tab PO Q4H PRN PRN Reason: Pain Assessment/Plan Comment:: History of Present Illness Vicki is a 56-year-old here today for a f/u from her recent bx she had in [facility] in [place], [place]. 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 She was called and informed of the results however she cannot remember what she was told other than she was to see Oncology Oct 07. She is with spouse who is truck striker and has very limited resources. Today she is very weak, lightheadedness, decrease in appetite, and constipated. Only has eaten popsicle inpast few days. Denies any fevers. Last BM ~ 5 days ago. She was recently DC from [facility] due to same problems and did quite well and was able to go home. Primary Hospital Problems --Small cell Ca, metastatic --Weakness --Dehydration --Pleural effusion, Left, moderate, --Constipation, profound, MOM, Add Movantik --Dehydration, ivf --Suspect protein malnutrition, dietary c/s FEN: IV fluids bolus 500mL now then at 70mL/hr, BMP, diet as tolerated. Code Status: DNR, POLST signed today. Long discussion with patient/spouse re poor prognosis. Disposition/Overall Plan --Admit to [facility] INPT status for labs, IV fluids. --CMP, CBC, mag level tonight. --IV Fluids, isontonic --SS Consult, may have to apply for medicaid - Mortality Measure Prognosis:: Poor
[2021-09-22] MEDS: Magnesium Hydroxide 400 MG/5 ML Susp 30 ML Cup PO SCH ×2 (17:45→20:38)
[2021-09-22] MEDS: Docusate Sodium 100 MG Cap PO SCH ×2 (17:45→20:38)
[2021-09-22] MEDS: Enoxaparin 40 MG/0.4 ML Syringe SUBCUT SCH (21:18)
[2021-09-22] MEDS: Morphine 2 MG/ML SYRINGE IVPUSH PRN (21:20)
[2021-09-22] MEDS: oxyCODONE 5 MG Tab PO PRN (23:46)
[2021-09-23] MEDS: oxyCODONE 5 MG Tab PO PRN ×5 (03:14→20:45)
[2021-09-23] MEDS: Naloxegol Oxalate 25 MG Tab PO SCH (10:30)
[2021-09-23] MEDS: Docusate Sodium 100 MG Cap PO SCH ×3 (10:30→20:41)
[2021-09-23] MEDS: Magnesium Hydroxide 400 MG/5 ML Susp 30 ML Cup PO SCH ×2 (10:30→20:41)
[2021-09-23] MEDS: Acetaminophen 500 MG Tab PO PRN ×2 (11:55→17:11)
--- NOTE | 2021-09-23 13:55 | PCM.PN ---
- General Info Date of Service: 09/23/21 Functional Status: Reports: Tolerating Diet, Urinating, New Symptoms (left sided chest pain, suspect wall pain ). Denies: Pain Controlled, Ambulating - Review of Systems General: Reports: Weakness, Fatigue, Malaise. Denies: Fever, Chills, Appetite HEENT: Reports: No Symptoms Pulmonary: Denies: Shortness of Breath, Pleuritic Chest Pain, Cough, Sputum Cardiovascular: Reports: Chest Pain, Lightheadedness. Denies: Palpitations, Orthopnea, PND, Edema Gastrointestinal: Reports: Abdominal Pain (improving. ), Constipation, Decreased Appetite. Denies: Diarrhea, Difficulty Swallowing, Nausea, Vomiting Genitourinary: Reports: No Symptoms Musculoskeletal: Reports: Neck Pain. Denies: Back Pain Skin: Reports: Pallor Neurological: Reports: Pre-Existing Deficit, Trouble Speaking, Difficulty Walking, Weakness, Gait Disturbance. Denies: Confusion - Patient Data Vitals - Most Recent: Last Vital Signs Temp 96.8 F L 09/23/21 06:39 Pulse 110 H 09/23/21 06:39 Resp 20 09/23/21 06:39 BP 120/96 H 09/23/21 06:39 Pulse Ox 91 L 09/23/21 06:39 Weight - Most Recent: 119 lb 8 oz I&O - Last 24 Hours: Intake & Output 09/22/21 09/23/21 09/23/21 22:59 06:59 14:59 Intake Total 500 1890 Balance 500 1890 Lab Results Last 24 Hours: Laboratory Results - last 24 hr 09/22/21 09/22/21 09/22/21 Range/Units 16:05 16:50 16:50 WBC 15.04 H (5.00-10.00) 10^3/uL RBC 3.94 (3.80-5.50) 10^6/uL Hgb 12.2 D (12.0-16.0) g/dL Hct 38.2 (37.0-47.0) % MCV 97.0 H (82.0-92.0) fL MCH 31.0 (27.0-31.0) pg MCHC 31.9 L (32.0-36.0) g/dL RDW 16.7 H (11.5-14.5) % Plt Count 325 (150-400) 10^3/uL MPV 7.9 (7.4-10.4) fL Immature Gran % (Auto) 0.1 (0.0-5.0) % Neut % (Auto) 77.6 H (50.0-70.0) % Lymph % (Auto) 13.1 L (20.0-40.0) % [place] % (Auto) 8.3 H (2.0-8.0) % Eos % (Auto) 0.7 L (1.0-3.0) % Baso % (Auto) 0.2 (0.0-1.0) % Neut # (Auto) 11.66 H (2.50-7.00) 10^3/uL Lymph # (Auto) 1.97 (1.00-4.00) 10^3/uL [place] # (Auto) 1.25 H (0.10-0.80) 10^3/uL Eos # (Auto) 0.11 (0.10-0.30) 10^3/uL Baso # (Auto) 0.03 (0.00-0.10) 10^3/uL Immature Gran # (Auto) 0.02 (0.00-0.50) 10^3/uL Sodium 138 (136-145) mmol/L Potassium 3.6 (3.5-5.1) mmol/L Chloride 101 (98-107) mmol/L Carbon Dioxide 24.0 (21.0-32.0) mmol/L Anion Gap 16.6 H (5-15) mmol/L BUN 6 L (7-18) mg/dL Creatinine 0.41 L (0.51-1.17) mg/dL Est Cr Clr Drug Dosing 127.98 mL/min Estimated GFR (MDRD) > 60 mL/min Glucose 106 (70-140) mg/dL Calcium 7.7 L (8.7-10.3) mg/dL Magnesium 2.1 (1.8-2.4) mg/dL Total Bilirubin 1.0 (0.2-1.0) mg/dL AST 42 H (15-37) U/L ALT 13 L (14-63) U/L Alkaline Phosphatase 123 H (46-116) U/L Troponin I High Sens (0-51.000) pg/mL Total Protein 6.0 L (6.4-8.2) g/dL Albumin 1.95 L (3.40-5.00) g/dL SARS CoV-2 RNA Rapid TEJAL Negative (NEGATIVE) 09/23/21 Range/Units 08:45 WBC (5.00-10.00) 10^3/uL RBC (3.80-5.50) 10^6/uL Hgb (12.0-16.0) g/dL Hct (37.0-47.0) % MCV (82.0-92.0) fL MCH (27.0-31.0) pg MCHC (32.0-36.0) g/dL RDW (11.5-14.5) % Plt Count (150-400) 10^3/uL MPV (7.4-10.4) fL Immature Gran % (Auto) (0.0-5.0) % Neut % (Auto) (50.0-70.0) % Lymph % (Auto) (20.0-40.0) % [place] % (Auto) (2.0-8.0) % Eos % (Auto) (1.0-3.0) % Baso % (Auto) (0.0-1.0) % Neut # (Auto) (2.50-7.00) 10^3/uL Lymph # (Auto) (1.00-4.00) 10^3/uL [place] # (Auto) (0.10-0.80) 10^3/uL Eos # (Auto) (0.10-0.30) 10^3/uL Baso # (Auto) (0.00-0.10) 10^3/uL Immature Gran # (Auto) (0.00-0.50) 10^3/uL Sodium (136-145) mmol/L Potassium (3.5-5.1) mmol/L Chloride (98-107) mmol/L Carbon Dioxide (21.0-32.0) mmol/L Anion Gap (5-15) mmol/L BUN (7-18) mg/dL Creatinine (0.51-1.17) mg/dL Est Cr Clr Drug Dosing mL/min Estimated GFR (MDRD) mL/min Glucose (70-140) mg/dL Calcium (8.7-10.3) mg/dL Magnesium (1.8-2.4) mg/dL Total Bilirubin (0.2-1.0) mg/dL AST (15-37) U/L ALT (14-63) U/L Alkaline Phosphatase (46-116) U/L Troponin I High Sens 6.200 (0-51.000) pg/mL Total Protein (6.4-8.2) g/dL Albumin (3.40-5.00) g/dL SARS CoV-2 RNA Rapid TEJAL (NEGATIVE) Med Orders - Current: Current Medications Acetaminophen (Acetaminophen 500 Mg Tab) 500 mg PO Q4H PRN PRN Reason: Pain Last Admin: 09/23/21 11:55 Dose: 500 mg Documented by: Cyclobenzaprine HCl (Cyclobenzaprine 10 Mg Tab) 10 mg PO TID PRN PRN Reason: Muscle Spasm - Painful Docusate Sodium (Docusate Sodium 100 Mg Cap) 100 mg PO TID [facility] Last Admin: 09/23/21 10:30 Dose: 100 mg Documented by: Enoxaparin Sodium (Enoxaparin 40 Mg/0.4 Ml Syringe) 40 mg SUBCUT Q24H [facility] Last Admin: 09/22/21 21:18 Dose: 40 mg Documented by: Sodium Chloride (Normal Saline) 1,000 mls @ 70 mls/hr IV ASDIRECTED [facility] Last Admin: 09/22/21 23:49 Dose: 70 mls/hr Documented by: Magnesium Hydroxide (Magnesium Hydroxide 400 Mg/5 Ml Susp 30 Ml Cup) 30 ml PO BID [facility] Last Admin: 09/23/21 10:30 Dose: 30 ml Documented by: Morphine Sulfate (Morphine 2 Mg/Ml Syringe) 1 mg IVPUSH Q2H PRN PRN Reason: Breakthrough Pain Last Admin: 09/22/21 21:20 Dose: 1 mg Documented by: Naloxegol (Naloxegol Oxalate 25 Mg Tab) 25 mg PO DAILY [facility] Last Admin: 09/23/21 10:30 Dose: 25 mg Documented by: Oxycodone HCl (Oxycodone 5 Mg Tab) 7.5 mg PO Q3H PRN PRN Reason: Pain Last Admin: 09/23/21 11:54 Dose: 7.5 mg Documented by: Discontinued Medications Sodium Chloride (Normal Saline) 500 mls @ 999 mls/hr IV ASDIRECTED [facility] Stop: 09/22/21 17:01 Oxycodone/Acetaminophen (Acetaminophen/Oxycodone 325-5 Mg Tab) 1 tab PO Q4H PRN PRN Reason: Pain Last Admin: 09/22/21 17:45 Dose: 1 tab Documented by: - Exam Quality Assessment: DVT Prophylaxis. No: Supplemental Oxygen General: Alert, Oriented, No Acute Distress Lungs: Clear to Auscultation, Normal Respiratory Effort Cardiovascular: Tachycardia GI/Abdominal Exam: Normal Bowel Sounds, Soft, No Distention, Distended (not taut), Hepatomegaly. No: Guarding, Tender, Mass Back Exam: No: CVA Tenderness (L), CVA Tenderness (R) Extremities: No Pedal Edema Skin: Other (pallor) Neurological: Strength Equal Bilateral, Cranial Nerves Intact. No: Normal Gait Psy/Mental Status: Alert, Labile Mood #1 Interpretation EKG Date: 09/23/21 Rhythm: NSR P-Wave: Variable ST-T: Depressed Comparison: No Change - Patient Data Lab Results Last 24 hrs: Laboratory Results - last 24 hr 09/22/21 09/22/21 09/22/21 Range/Units 16:05 16:50 16:50 WBC 15.04 H (5.00-10.00) 10^3/uL RBC 3.94 (3.80-5.50) 10^6/uL Hgb 12.2 D (12.0-16.0) g/dL Hct 38.2 (37.0-47.0) % MCV 97.0 H (82.0-92.0) fL MCH 31.0 (27.0-31.0) pg MCHC 31.9 L (32.0-36.0) g/dL RDW 16.7 H (11.5-14.5) % Plt Count 325 (150-400) 10^3/uL MPV 7.9 (7.4-10.4) fL Immature Gran % (Auto) 0.1 (0.0-5.0) % Neut % (Auto) 77.6 H (50.0-70.0) % Lymph % (Auto) 13.1 L (20.0-40.0) % [place] % (Auto) 8.3 H (2.0-8.0) % Eos % (Auto) 0.7 L (1.0-3.0) % Baso % (Auto) 0.2 (0.0-1.0) % Neut # (Auto) 11.66 H (2.50-7.00) 10^3/uL Lymph # (Auto) 1.97 (1.00-4.00) 10^3/uL [place] # (Auto) 1.25 H (0.10-0.80) 10^3/uL Eos # (Auto) 0.11 (0.10-0.30) 10^3/uL Baso # (Auto) 0.03 (0.00-0.10) 10^3/uL Immature Gran # (Auto) 0.02 (0.00-0.50) 10^3/uL Sodium 138 (136-145) mmol/L Potassium 3.6 (3.5-5.1) mmol/L Chloride 101 (98-107) mmol/L Carbon Dioxide 24.0 (21.0-32.0) mmol/L Anion Gap 16.6 H (5-15) mmol/L BUN 6 L (7-18) mg/dL Creatinine 0.41 L (0.51-1.17) mg/dL Est Cr Clr Drug Dosing 127.98 mL/min Estimated GFR (MDRD) > 60 mL/min Glucose 106 (70-140) mg/dL Calcium 7.7 L (8.7-10.3) mg/dL Magnesium 2.1 (1.8-2.4) mg/dL Total Bilirubin 1.0 (0.2-1.0) mg/dL AST 42 H (15-37) U/L ALT 13 L (14-63) U/L Alkaline Phosphatase 123 H (46-116) U/L Troponin I High Sens (0-51.000) pg/mL Total Protein 6.0 L (6.4-8.2) g/dL Albumin 1.95 L (3.40-5.00) g/dL SARS CoV-2 RNA Rapid TEJAL Negative (NEGATIVE) 09/23/21 Range/Units 08:45 WBC (5.00-10.00) 10^3/uL RBC (3.80-5.50) 10^6/uL Hgb (12.0-16.0) g/dL Hct (37.0-47.0) % MCV (82.0-92.0) fL MCH (27.0-31.0) pg MCHC (32.0-36.0) g/dL RDW (11.5-14.5) % Plt Count (150-400) 10^3/uL MPV (7.4-10.4) fL Immature Gran % (Auto) (0.0-5.0) % Neut % (Auto) (50.0-70.0) % Lymph % (Auto) (20.0-40.0) % [place] % (Auto) (2.0-8.0) % Eos % (Auto) (1.0-3.0) % Baso % (Auto) (0.0-1.0) % Neut # (Auto) (2.50-7.00) 10^3/uL Lymph # (Auto) (1.00-4.00) 10^3/uL [place] # (Auto) (0.10-0.80) 10^3/uL Eos # (Auto) (0.10-0.30) 10^3/uL Baso # (Auto) (0.00-0.10) 10^3/uL Immature Gran # (Auto) (0.00-0.50) 10^3/uL Sodium (136-145) mmol/L Potassium (3.5-5.1) mmol/L Chloride (98-107) mmol/L Carbon Dioxide (21.0-32.0) mmol/L Anion Gap (5-15) mmol/L BUN (7-18) mg/dL Creatinine (0.51-1.17) mg/dL Est Cr Clr Drug Dosing mL/min Estimated GFR (MDRD) mL/min Glucose (70-140) mg/dL Calcium (8.7-10.3) mg/dL Magnesium (1.8-2.4) mg/dL Total Bilirubin (0.2-1.0) mg/dL AST (15-37) U/L ALT (14-63) U/L Alkaline Phosphatase (46-116) U/L Troponin I High Sens 6.200 (0-51.000) pg/mL Total Protein (6.4-8.2) g/dL Albumin (3.40-5.00) g/dL SARS CoV-2 RNA Rapid TEJAL (NEGATIVE) Result Diagrams: 09/22/21 16:50 09/22/21 16:50 Sepsis Event Note - Evaluation Sepsis Screening Result: No Definite Risk - Focused Exam Vital Signs: Vital Signs Temp Pulse Resp BP Pulse Ox 09/23/21 06:39 96.8 F L 110 H 20 120/96 H 91 L - Problem List Review Problem List Initiated/Reviewed/Updated: Yes - My Orders Last 24 Hours: My Active Orders 09/22/21 16:20 Patient Status [ADT] Routine 09/22/21 16:22 Vital Signs [RC] 07,15,23 Resuscitation Status Routine 09/22/21 16:38 Consult to Case Management/Superintendent System Operation [CONS] Routine 09/22/21 17:02 Sodium Chloride 0.9% [Normal Saline] 1,000 ml IV ASDIRECTED 09/22/21 17:22 Acetaminophen [Tylenol Extra Strength] 500 mg PO Q4H PRN Cyclobenzaprine [Flexeril] 10 mg PO TID PRN 09/22/21 17:30 Docusate Sodium [Colace] 100 mg PO TID Magnesium Hydroxide [Milk of Magnesia] 30 ml PO BID 09/22/21 20:31 oxyCODONE 7.5 mg PO Q3H PRN 09/22/21 20:33 Morphine 1 mg IVPUSH Q2H PRN 09/22/21 21:00 Enoxaparin [Lovenox] 40 mg SUBCUT Q24H 09/23/21 08:30 EKG 12 Lead [EK] Routine 09/23/21 09:00 Naloxegol Oxalate [Movantik] 25 mg PO DAILY 09/23/21 Lunch Regular Diet [DIET] - Plan Plan:: History of Present Illness Vicki is a 56-year-old here today for a f/u from her recent bx she had in [facility] in [place], [place]. 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 She was called and informed of the results however she cannot remember what she was told other than she was to see Oncology Oct 07. She is with spouse who is driver lifter of sanitation truck and has very limited resources. Today she is very weak, lightheadedness, decrease in appetite, and constipated. Only has eaten popsicle inpast few days. Denies any fevers. Last BM ~ 5 days ago. She was recently DC from [facility] due to same problems and did quite well and was able to go home. Hospital course: 09/22: Call during the night with increase in pain and with new onset Left sided chest pain. Orders to increase oxycodone from 5mg Q4 to 7.5mg Q3h with added 1mg morphine IVP q1h PRN for breakthrough. Today, some pain left chest wall persist. Good BP, No SOB, no fever. Doubtful cardiac in origin. Primary Hospital Problems --Chest wall pain, [place] ruled out. Suspect pleuritic. --Small cell Ca, metastatic --Weakness, profound --Dehydration, improving --Pleural effusion, Left, moderate, --Constipation, profound, MOM, Movantik --Suspect protein malnutrition, dietary c/s FEN: IV fluids 70mL/hr, K/Tejal+ normal, diet as tolerated. Code Status: DNR, POLST signed today. Long discussion with patient/spouse re poor prognosis. Hospice consult today. Disposition/Overall Plan --Cont with INPT status, --Hospice referrral, will see today, will DC to home upon hospice acceptance. --Troponin/EKG --IV Fluids, isontonic
[2021-09-23] MEDS: Morphine 2 MG/ML SYRINGE IVPUSH PRN (14:25)
[2021-09-23] MEDS: Enoxaparin 40 MG/0.4 ML Syringe SUBCUT SCH (20:39)
[2021-09-24] MEDS: oxyCODONE 5 MG Tab PO PRN ×3 (05:01→12:42)
[2021-09-24 06:38] VITALS: BP 132/76; PULSE 111
[2021-09-24] MEDS: Magnesium Hydroxide 400 MG/5 ML Susp 30 ML Cup PO SCH (08:06)
[2021-09-24] MEDS: Naloxegol Oxalate 25 MG Tab PO SCH (08:07)
[2021-09-24] MEDS: Docusate Sodium 100 MG Cap PO SCH (08:08)
--- NOTE | 2021-09-24 09:20 | PCM.DCSUM1 ---
Discharge Summary - Hospital Course Free Text/Narrative:: Admission Date: 09/21/2021 Discharge Date: 09/24/2021 Disposition: Home with hospice History of Present Illness Vicki is a 56-year-old here today for a f/u from her recent biopsy she had in [facility] in [place], [place]. Biopsy site was a palpable supraclavicular lymph node. 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 She was called and informed of the results however she cannot remember what she was told other than she was to see Oncology Oct 07. She is with spouse who is truck bracer and has very limited resources. Upon admission she is very weak, lightheadedness, decrease in appetite, and constipated. Only has eaten popsicle in the past few days. Denies any fevers. Last BM ~ 5 days ago. She was recently DC from [facility] due to same problems and did quite well and was able to go home. Hospital course: 09/22: Call during the night with increase in pain and with new onset Left sided chest pain. Orders to increase oxycodone from 5mg Q4 to 7.5mg Q3h with added 1mg morphine IVP q1h PRN for breakthrough. Today, some pain left chest wall persist. Good BP, No SOB, no fever. Doubtful cardiac in origin. 09/24: Date of discharge. She will be discharged to home with hospice of the [facility]. Will leave pain management up to them. No new medications at discharge. Primary Hospital Problems --Chest wall pain, [place] ruled out. Suspect pleuritic. --Small cell lung cancer, metastatic --Weakness, profound --Dehydration, improving --Pleural effusion, Left, moderate, --Constipation, profound, MOM, Movantik, as had a bowel movement in the hospital --Suspect protein malnutrition, dietary c/s FEN: IV fluids 70mL/hr, K/Tejal+ normal, regular diet as tolerated Code Status: DNR, POLST signed today. Long discussion with patient/spouse re poor prognosis. Disposition/Overall Plan --Discharge to home with hospice today --Hospice referrral, will see today, will DC to home upon hospice acceptance. Diagnosis: Stroke: No Modified [place] Scale: Mod.Sev.Disability ;Unable to Walk/Attend Bodily Needs W/O Assistance Modified Banks Scale Score: 4 - Discharge Data Discharge Date: 09/24/21 Discharge Disposition: DC/Tfer to Hospice - Home 48 Condition: Poor - Referral to Home Health Primary Care Physician: Jackie Juárez MD - Patient Summary/Data Consults: Consultations 09/22/21 16:38 Consult to Case Management/Ui Designer [CONS] Routine 09/23/21 16:54 PT Evaluation and Treatment [CONS] Routine - Patient Instructions Diet: Usual Diet as Tolerated Activity: As Tolerated - Discharge Plan *PRESCRIPTION DRUG MONITORING PROGRAM REVIEWED*: No *COPY OF PRESCRIPTION DRUG MONITORING REPORT IN PATIENT JON: No Home Medications: Home Meds Cyclobenzaprine HCl 10 mg PO TID PRN 03/06/19 [History] carisoprodoL [Carisoprodol] 350 mg PO TID 08/12/21 [History] Acetaminophen [Acetaminophen Extra Strength] 500 mg PO Q4H PRN 09/22/21 [History] Docusate Sodium [Colace] 100 mg PO DAILY 09/22/21 [History] oxyCODONE HCl/Acetaminophen [Oxycodone-Acetaminophen 5-325] 1 tab PO Q4H PRN 09/22/21 [History] - Discharge Summary/Plan Comment DC Time >30 min.: No Total # of Minutes for Discharge Time: 27 - General Info Date of Service: 09/24/21 Admission Dx/Problem (Free Text: Admission Diagnosis/Problem Admission Diagnosis/Problem Weakness - Patient Data Vitals - Most Recent: Last Vital Signs Temp 98.0 F 09/24/21 06:38 Pulse 111 H 09/24/21 06:38 Resp 16 09/24/21 06:38 BP 132/76 09/24/21 06:38 Pulse Ox 92 L 09/24/21 06:38 Weight - Most Recent: 119 lb 8 oz I&O - Last 24 hours: Intake & Output 09/23/21 09/24/21 09/24/21 22:59 06:59 14:59 Intake Total 300 250 Balance 300 250 Lab Results - Last 24 hrs: Laboratory Results - last 24 hr 09/23/21 Range/Units 08:45 Troponin I High Sens 6.200 (0-51.000) pg/mL Med Orders - Current: Current Medications Acetaminophen (Acetaminophen 500 Mg Tab) 500 mg PO Q4H PRN PRN Reason: Pain Last Admin: 09/23/21 17:11 Dose: 500 mg Documented by: Cyclobenzaprine HCl (Cyclobenzaprine 10 Mg Tab) 10 mg PO TID PRN PRN Reason: Muscle Spasm - Painful Docusate Sodium (Docusate Sodium 100 Mg Cap) 100 mg PO TID [facility] Last Admin: 09/24/21 08:08 Dose: 100 mg Documented by: Enoxaparin Sodium (Enoxaparin 40 Mg/0.4 Ml Syringe) 40 mg SUBCUT Q24H [facility] Last Admin: 09/23/21 20:39 Dose: 40 mg Documented by: Magnesium Hydroxide (Magnesium Hydroxide 400 Mg/5 Ml Susp 30 Ml Cup) 30 ml PO BID [facility] Last Admin: 09/24/21 08:06 Dose: 30 ml Documented by: Morphine Sulfate (Morphine 2 Mg/Ml Syringe) 1 mg IVPUSH Q2H PRN PRN Reason: Breakthrough Pain Last Admin: 09/23/21 14:25 Dose: 1 mg Documented by: Naloxegol (Naloxegol Oxalate 25 Mg Tab) 25 mg PO DAILY [facility] Last Admin: 09/24/21 08:07 Dose: 25 mg Documented by: Oxycodone HCl (Oxycodone 5 Mg Tab) 7.5 mg PO Q3H PRN PRN Reason: Pain Last Admin: 09/24/21 08:06 Dose: 7.5 mg Documented by: Discontinued Medications Sodium Chloride (Normal Saline) 500 mls @ 999 mls/hr IV ASDIRECTED [facility] Stop: 09/22/21 17:01 Sodium Chloride (Normal Saline) 1,000 mls @ 70 mls/hr IV ASDIRECTED [facility] Last Admin: 09/22/21 23:49 Dose: 70 mls/hr Documented by: Oxycodone/Acetaminophen (Acetaminophen/Oxycodone 325-5 Mg Tab) 1 tab PO Q4H PRN PRN Reason: Pain Last Admin: 09/22/21 17:45 Dose: 1 tab Documented by: - Exam General: Reports: Alert, Oriented, Cooperative, No Acute Distress Lungs: Reports: Clear to Auscultation, Normal Respiratory Effort Cardiovascular: Reports: Regular Rate, Regular Rhythm, No Murmurs GI/Abdominal Exam: Normal Bowel Sounds Wound/Incisions: Reports: Healing Well
== END 2021-09-24 12:50 | disposition hospice, home (50) | DRG 948 ==
LOC: KA.MS 16:20
PROVIDERS: ADMIT Nurse Practitioner Family; ATTEND Nurse Practitioner Family
DX: R53.1 Weakness (principal); E46 Unspecified protein-calorie malnutrition; C34.90 Malignant neoplasm of unspecified part of unspecified bronchus or lung; J90 Pleural effusion, not elsewhere classified; Z68.1 Body mass index [BMI] 19.9 or less, adult; Z66 Do not resuscitate; E86.0 Dehydration; K59.00 Constipation, unspecified; M54.2 Cervicalgia; G89.29 Other chronic pain; Z20.822 Contact with and (suspected) exposure to COVID-19; M54.9 Dorsalgia, unspecified; F17.200 Nicotine dependence, unspecified, uncomplicated; R07.89 Other chest pain; Z91.040 Latex allergy status; Z91.013 Allergy to seafood; Z79.899 Other long term (current) drug therapy; Z90.49 Acquired absence of other specified parts of digestive tract; Z98.51 Tubal ligation status; Z98.890 Other specified postprocedural states; Z90.710 Acquired absence of both cervix and uterus
CPT/HCPCS: 36415; 80053; 83735; 84484; 85025; 93005; A9270-GY; J1650; J2270; J7030; U0002